=== PATIENT | male | born 1990 | race African-American/Black ===

== ENCOUNTER 2016-09-20 18:13 | Emergency (ER) | payer OTHER ==
[~2016-09-20] VITALS: Ht 172.7 cm; Wt 97.5 kg
[~2016-09-20 18:13] MED LIST: BENZ1TAB5 PO; CHLO100T PO; CHLO100T6 PO; DIVA500T9 PO; FLUO20CA16 PO; HYDR-2666 PO; LINA145C PO; LORA-434 PO; LOSA50TA6 PO; MIRT15TA3 PO; RISP1TAB3 PO; RISP3TAB3 PO; TRAZ50TA15 PO; VALP250C2 PO
[2016-09-20 19:25] VITALS: BP 135/73
--- NOTE | 2016-09-20 19:42 | PHYS DOC ---
Past Medical History Past Medical History: Anxiety, Hypertension, Pneumonia, Other Additional Past Medical Histor: Autism Past Surgical History: Other Additional Past Surgical Histo: sebaceous cyst bilater axilla, L toe amputation Alcohol Use: None Drug Use: None Adult General Chief Complaint Chief Complaint: FEVER HPI HPI Patient is a 26 year old male presents to the emergency department with parents stating that she he has had a fever on and off for the last 2-3 days. He states that he's had a nonproductive cough is been pulling in bilateral ears. She states that he has autism and is nonverbal so it is hard to determine what is going on with him. She denies any nausea vomiting. Review of Systems Review of Systems Constitutional: low grade fever at home Eyes: Denies change in visual acuity, redness, or eye pain [] HENT: Denies nasal congestion or sore throat [] Respiratory: nonproductive cough denies shortness of breath [] Cardiovascular: No additional information not addressed in HPI [] GI: Denies abdominal pain, nausea, vomiting, bloody stools or diarrhea [] : Denies dysuria or hematuria [] Musculoskeletal: Denies back pain or joint pain [] Integument: Denies rash or skin lesions [] Neurologic: Denies headache, focal weakness or sensory changes [] Endocrine: Denies polyuria or polydipsia [] 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 [] HENT: Normocephalic, atraumatic, bilateral external ears normal, oropharynx moist, no oral exudates, nose normal. Bilateral tympanic membranes appear to be normal patient with moist mucous membranes noted however lips do appear to be slightly dry. Eyes: PERRLA, EOMI, conjunctiva normal, no discharge. [] Neck: Normal range of motion, no tenderness, supple, no stridor. [] Cardiovascular:Heart rate regular rhythm, no murmur [] Lungs & Thorax: Bilateral breath sounds clear to auscultation [] Skin: Warm, dry, no erythema, no rash. [] Back: No tenderness Extremities: No tenderness, no cyanosis, no clubbing, ROM intact, no edema. [] Neurologic: Alert and oriented X 3, normal motor function, normal sensory function, no focal deficits noted. [] Psychologic: Affect normal, judgement normal, mood normal. [] Current Patient Data Vital Signs Vital Signs Date Time Temp Pulse Resp B/P (MAP) Pulse Ox O2 Delivery O2 Flow Rate FiO2 09/20/16 19:25 98.3 97 20 97 Room Air 98.3 EKG EKG [] Radiology/Procedures Radiology/Procedures [] Course & Med Decision Making Course & Med Decision Making Pertinent Labs and Imaging studies reviewed. (See chart for details) X-ray positive for infiltrates on the right lower lobe. Patient will be placed on Zithromax with recommendations for Tylenol or ibuprofen for fever chills or generalized body aches and discomfort. Recommended plenty of fluids. Signs and symptoms to return back to emergency department provided. Patient will be discharged home in stable condition. [] Dragon Disclaimer Dragon Disclaimer This electronic medical record was generated, in whole or in part, using a voice recognition dictation system. Departure Departure Impression: Primary Impression: Pneumonia Disposition: HOME, SELF-CARE Condition: STABLE Referrals: LETI MCWILLIAMS MD (PCP) Patient Instructions: Pneumonia, Adult, [id number] Additional Instructions: Activity as tolerated. Medication as prescribed. Tylenol or ibuprofen for pain and discomfort. Encourage plenty of fluids. Follow-up with primary care physician as needed for sign symptoms of become worse. Return back to emergency department as needed. Scripts Azithromycin (ZITHROMAX) 250 Mg Tablet 250 MG PO DAILY for ANTI-BIOTIC, #6 TAB 0 Refills 2 tablets today and then 1 tablet daily until gone Prov: FELIPE LAM APRN 09/20/16 FELIPE LMA APRN September 20, 2016 19:42
[2016-09-20] MEDS ORDERED: AZIT250T PO (19:53)
--- NOTE | 2016-09-21 08:00 | RAD ---
Indication cough and fever. PA and lateral views of the chest were obtained. Comparison is made to an exam 01/25/2016. There is interstitial prominence in the right lung. This is very similar to the previous exam as well as examinations 08/22/2015 and 03/31/2014. The finding, given the lack of substantial change, is probably chronic and treasury representative of scarring. Recurrent pneumonia, given the lack of significant change, is felt less likely. A definite consolidated pneumonia is not seen. The heart and pulmonary vessels are normal. There is no pleural fluid or pneumothorax. IMPRESSION: Probable chronic changes. See above discussion.
== END 2016-09-20 20:08 | disposition home or self-care (01) ==
LOC: ER 18:13
DX: J18.9 Pneumonia, unspecified organism (principal); F41.9 Anxiety disorder, unspecified; I10 Essential (primary) hypertension; Z88.1 Allergy status to other antibiotic agents
CPT/HCPCS: 71020; 99284

== ENCOUNTER 2017-01-15 11:01 | Emergency (ER) | payer OTHER ==
[~2017-01-15 11:01] MED LIST changes: +AZIT250T PO; -HYDR-2666 PO; +HYDR-2758 PO
--- NOTE | 2017-01-15 12:56 | PHYS DOC ---
Past Medical History Past Medical History: Anxiety, Hypertension, Pneumonia, Other Additional Past Medical Histor: Autism Past Surgical History: Other Additional Past Surgical Histo: sebaceous cyst bilater axilla, L toe amputation Alcohol Use: None Drug Use: None Adult General Chief Complaint Chief Complaint: OTHER COMPLAINTS HPI HPI Patient is a 26 year old male who presents to the emergency department with his mother for evaluation of a possible throat problem. Mother states that the patient had an episode shortly prior to arrival where she went to wake him up and stated that he was unresponsive. This lasted for a few minutes per mother. The patient then awoke with coughing. The patient has had intermittent coughing which the mother describes "more is belching" but states that it seems he might have something in his throat. Patient has not eaten or drank anything since this episode. The patient was in his usual state of health and ate breakfast this morning prior to onset of symptoms. Patient's had no fevers. The patient is autistic and is nonverbal. The patient does follow commands. The patient is not vomiting and not having diarrhea. 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 [] HENT: Normocephalic, atraumatic, bilateral external ears normal, oropharynx moist, no oral exudates, nose normal. [] Eyes: PERRLA, EOMI, conjunctiva normal, no discharge. [] Neck: Normal range of motion, no tenderness, supple, no stridor. [] Cardiovascular:Heart rate regular rhythm, no murmur [] Lungs & Thorax: Bilateral breath sounds clear to auscultation [] Abdomen: Bowel sounds normal, soft, no tenderness, no masses, no pulsatile masses. [] Skin: Warm, dry, no erythema, no rash. [] Back: No tenderness, no CVA tenderness. [] Extremities: No tenderness, no cyanosis, no clubbing, ROM intact, no edema. [] Neurologic: Alert, nonverbal, follows commands, normal motor function, normal sensory function, no focal deficits noted. [] Current Patient Data Vital Signs Vital Signs Date Time Temp Pulse Resp B/P (MAP) Pulse Ox O2 Delivery O2 Flow Rate FiO2 01/15/17 13:00 120 134/74 (94) 98 Room Air 01/15/17 12:00 18 01/15/17 11:08 98.3 98.3 Lab Values None performed EKG EKG Not performed[] Radiology/Procedures Radiology/Procedures [facility] [address] [place] [address] IMAGING REPORT Signed PATIENT: ROBERT BARR ACCOUNT: [id number] : 1990 LOCATION: ER AGE: 26 SEX: M EXAM STATUS: REG ER ORD. PHYSICIAN: RENAY GARCIA MD REASON: belching, patient autistic, does not verbalize complaints PROCEDURE: ACUTE ABDOMEN SERIES Examination: Acute abdomen series History: History of belching Comparison: 05/05/2015 Findings: The cardiomediastinal silhouette grossly appears unremarkable. Mild prominent appearing bibasal interstitial lung markings similar to prior exam. Nonspecific bowel gas pattern. Mild amount of stool identified throughout the colon. Impression: 1. Mild prominent appearing bibasal interstitial lung markings similar to prior exam. 2. Nonspecific bowel gas pattern. Minimal amount of stool identified in the colon. DICTATED and SIGNED BY: JENNIFER CORDOVA MD DATE: 01/15/17 1250 CC: RENAY GARCIA MD; LETI FISH MD ~ [] Course & Med Decision Making Course & Med Decision Making Pertinent Labs and Imaging studies reviewed. (See chart for details) The patient appears in no acute distress at this time. The patient was trialed with a lemon point lay ira soda and was able to drink it without difficulty. Patient appears in no respiratory distress and is tolerating by mouth intake without difficulty. I suspect that the patient may have had possible esophageal reflux after napping shortly after a meal. I spoke with the patient's primary physician , Dr. Fish, and informed her of his visit. She has that the patient follow-up routinely next week in her office. Recommended use of antiacids as needed for symptoms. Advised to return emergency department for any worsening symptoms. Mother voiced understanding and in agreement with treatment plan. Dragon Disclaimer Dragon Disclaimer This electronic medical record was generated, in whole or in part, using a voice recognition dictation system. Departure Departure Impression: Primary Impression: Cough Disposition: 01 HOME, SELF-CARE Condition: GOOD Referrals: LETI FISH MD (PCP) Patient Instructions: Cough, Adult Additional Instructions: Your son's exam showed no worrisome findings today in the emergency department. He may have experienced an episode of acid reflux. You may try Tums or other antacids as needed for any recurrence of symptoms. Follow-up with Dr. Fish in the next 5 days for reevaluation. Return to the emergency department for any worsening symptoms. RENAY GARCIA MD Jan 15, 2017 12:56
[2017-01-15 13:00] VITALS: BP 134/74
== END 2017-01-15 13:52 | disposition home or self-care (01) ==
LOC: ER 11:01
DX: R05 Cough (principal); F84.0 Autistic disorder; I10 Essential (primary) hypertension; Z88.2 Allergy status to sulfonamides; Z88.1 Allergy status to other antibiotic agents
CPT/HCPCS: 74022; 99284

== ENCOUNTER 2017-03-28 19:27 | Emergency (ER) | payer OTHER ==
[~2017-03-28] VITALS: Ht 175.3 cm; Wt 93.4 kg
[2017-03-28 19:28] VITALS: BP 184/101
[2017-03-28 20:37] LABS: BASO % 0 % (0-3); EOS % 1 % (0-3); HEMATOCRIT 47.7 % (39.0-53.0); HEMOGLOBIN 15.7 g/dL (13.0-17.5); LYMPH # 2.5 x10^3/uL (1.0-4.8); LYMPH % 45 % (24-48); MEAN CORPUSCULAR HEMOGLOBIN 26 pg (25-35); MEAN CORPUSCULAR HGB CONC 33 g/dL (31-37); MEAN CORPUSCULAR VOLUME 79 fL (79-100); MONO % 12 % (0-9); NEUT % 42 % (31-73); PLATELET COUNT 204 x10^3/uL (140-400); RED BLOOD COUNT 6.01 x10^6/uL (4.30-5.70); RED CELL DISTRIBUTION WIDTH 13.4 % (11.5-14.5); WHITE BLOOD COUNT 5.4 x10^3/uL (4.0-11.0)
--- NOTE | 2017-03-28 20:41 | PHYS DOC ---
Past Medical History Past Medical History: Anxiety, Hypertension, Pneumonia, Other Additional Past Medical Histor: Autism Past Surgical History: Other Additional Past Surgical Histo: sebaceous cyst bilater axilla, L toe amputation Alcohol Use: None Drug Use: None Adult General Chief Complaint Chief Complaint: RECTAL BLEED HPI HPI Patient is a 26 year old -[place] male with history of autism and hypertension who presents with 2 episodes of rectal bleeding over the past 3 weeks. Patient had bright red rectal blood in dependence diaper upon change by his mother who assist caregiver. Patient upon episode today and one episode 3 weeks ago. Does not appear to have pain, fever. He has not had. History of irritable bowel syndrome. Patient is on Linzess No family history of ulcerative colitis of ulcerative, Crohns or colorectal cancer. History is obtained by the patient's mother.. [] Review of Systems Review of Systems ROS limited due to autism[] All other systems were reviewed and found to be within normal limits, except as documented in this note. 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 [] HENT: Normocephalic, atraumatic, bilateral external ears normal, oropharynx moist, no oral exudates, nose normal. [] Eyes: PERRLA, EOMI, conjunctiva normal, no discharge. [] Neck: Normal range of motion[] Cardiovascular:Heart rate regular rhythm, no murmur [] Lungs & Thorax: Since nonlabored, lung sounds clear[] Abdomen: Bowel sounds normal, soft, no tenderness, no masses, no pulsatile masses. Rectal, A sugars, external hemorrhoids or. [] Extremities: No tenderness, no cyanosis, no clubbing, ROM intact, no edema. [] Psychologic: Affect normal, judgement normal, mood normal. [] Current Patient Data Vital Signs Vital Signs Date Time Temp Pulse Resp B/P (MAP) Pulse Ox O2 Delivery O2 Flow Rate FiO2 03/28/17 19:28 98.0 107 22 184/101 (128) 97 Room Air 98.0 EKG EKG [] Radiology/Procedures Radiology/Procedures [] Course & Med Decision Making Course & Med Decision Making Pertinent Labs and Imaging studies reviewed. (See chart for details) [Baseline labs checked. Case reviewed with Dr. Melendez transcription specialist for Dr. Monterroso. Recommends outpatient management. ] Raphael Disclaimer Raphael Disclaimer This electronic medical record was generated, in whole or in part, using a voice recognition dictation system. Departure Departure Impression: Primary Impression: Rectal bleeding Disposition: HOME, SELF-CARE Admitting Physician: Zehra Mcwilliams Condition: GOOD Referrals: ZEHRA MCWILLIAMS MD (PCP) Patient Instructions: Rectal Bleeding, [id number] Additional Instructions: Please give Metamucil twice daily, continue Linzess and follow up with Dr. Mcwilliams. AUBREE DENNIS DO Mar 28, 2017 20:40
== END 2017-03-28 21:13 | disposition home or self-care (01) ==
LOC: ER 19:27
DX: K62.5 Hemorrhage of anus and rectum (principal); I10 Essential (primary) hypertension; K58.9 Irritable bowel syndrome, unspecified; F84.0 Autistic disorder; F41.9 Anxiety disorder, unspecified; Z88.2 Allergy status to sulfonamides; Z88.1 Allergy status to other antibiotic agents; Z88.8 Allergy status to other drugs, medicaments and biological substances
CPT/HCPCS: 36415; 80164; 85025; 99284

== ENCOUNTER 2017-09-07 19:44 | Emergency (ER) | payer OTHER ==
[2017-09-07 20:26] LABS: BILIRUBIN,URINE NEGATIVE (NEG); CLARITY,URINE CLEAR; COLOR,URINE YELLOW; GLUCOSE,URINE NEGATIVE (NEG); NITRITE,URINE NEGATIVE (NEG); PROTEIN,URINE NEGATIVE (NEG-TRACE)
[2017-09-07 20:37] LABS: POC GLUCOSE 97 mg/dL (70-99)
[2017-09-07 20:38] LABS: BACTERIA,URINE 0 /HPF (0-FEW); RBC,URINE 0 /HPF (0-2); WBC,URINE 0 /HPF (0-4)
[2017-09-07] MEDS ORDERED: DIPHTH,PERTUSS(ACELL),TET TOX 0.5 ML DISP.SYRIN. VAX IM ×2 (21:26)
[2017-09-07] MEDS: DIPHTH,PERTUSS(ACELL),TET TOX 0.5 ML DISP.SYRIN. VAX IM ×2 (21:30)
== END 2017-09-07 21:36 | disposition home or self-care (01) ==
LOC: ER 19:44
DX: R35.0 Frequency of micturition (principal); R41.82 Altered mental status, unspecified; F84.0 Autistic disorder; I10 Essential (primary) hypertension; Z88.2 Allergy status to sulfonamides; Z88.1 Allergy status to other antibiotic agents
CPT/HCPCS: 81001; 82962; 90471; 90715; 99283; 99284; 99285

== ENCOUNTER 2017-10-17 14:07 | Emergency (ER) | payer OTHER ==
[2017-10-17] MEDS: IPRATRPIUM/ALBUTEROL 0.5/2.5MG 3 ML NEBU. NEB (14:43)
== END 2017-10-17 16:03 | disposition home or self-care (01) ==
LOC: ER 16:03
DX: R05 Cough (principal); I10 Essential (primary) hypertension; F84.0 Autistic disorder; Z88.1 Allergy status to other antibiotic agents; Z88.2 Allergy status to sulfonamides; Z88.8 Allergy status to other drugs, medicaments and biological substances
CPT/HCPCS: 71045; 94640; 99283; J7620

== ENCOUNTER → 2018-02-21 | Outpatient (CLI) | payer OTHER ==
[2017-10-17 14:12] VITALS: BP 130/75
[~2018-02-21] MED LIST changes: +DIVA-53 PO; -DIVA500T9 PO; -LOSA50TA6 PO; +LOSA50TA7 PO; +TRAZ-85 PO; -TRAZ50TA15 PO
--- NOTE | 2018-02-21 17:46 | RAD ---
CT CHEST WO CONTRAST Indication: Cough for 2-3 months Technique: Noncontrast CT imaging was performed of the mass, multiplanar reconstruction images submitted. One or more of the following individualized dose reduction techniques were utilized for this examination: 1. Automated exposure control 2. Adjustment of the mA and/or kV according to patient size 3. Use of iterative reconstruction technique. Contrast: None Comparison: January 02, 2014 Findings: There are trace dependent pleural effusions greater on the right. There is focus of infiltrate of the right upper lobe with slightly groundglass features best seen axial image 22 series 3. There is mild reticular nodular appearing infiltrate of the posterior right upper lobe and also the right lower lobe. The is also somewhat reticular nodular appearing infiltrate of the left lower lobe. There is no pneumothorax. The heart is upper limits of normal. There is no significant lymphadenopathy of the chest. There is distention of the stomach. IMPRESSION: 1. There are reticulonodular infiltrates bilaterally, also more confluent somewhat groundglass infiltrate of the right upper lobe. Findings are nonspecific and may be seen with various infectious or inflammatory etiologies. There are trace dependent pleural effusions greater on the right. Electronically signed by: Raul Chappell MD (02/21/2018 5:43 PM) [id number]
== END | disposition home or self-care (01) ==
LOC: CT 02-15 09:50
PROVIDERS: ATTEND Internal Medicine Critical Care Medicine
DX: J90 Pleural effusion, not elsewhere classified (principal); K31.89 Other diseases of stomach and duodenum; R91.8 Other nonspecific abnormal finding of lung field
CPT/HCPCS: 71250

== ENCOUNTER 2018-03-01 14:12 | Emergency (ER) | payer OTHER ==
[~2018-03-01] VITALS: Ht 175.3 cm; Wt 91.2 kg
[2018-03-01 14:16] VITALS: BP 162/90
[2018-03-01] MEDS ORDERED: ACETAMINOPHEN 500 MG TABLET PO ONE (14:45)
[2018-03-01 14:49] LABS: BILIRUBIN,URINE NEGATIVE (NEG); CLARITY,URINE CLEAR; COLOR,URINE YELLOW; NITRITE,URINE NEGATIVE (NEG); PH,URINE 7.5; PROTEIN,URINE NEGATIVE (NEG-TRACE); UROBILINOGEN,URINE 0.2 mg/dL (0.2 mg/dL)
[2018-03-01 14:58] LABS: BACTERIA,URINE 0 /HPF (0-FEW); RBC,URINE 0 /HPF (0-2); SQUAMOUS EPITHELIAL CELL,UR OCC /LPF; WBC,URINE 0 /HPF (0-4)
--- NOTE | 2018-03-01 15:45 | PHYS DOC ---
Past Medical History Past Medical History: Hypertension Additional Past Medical Histor: AUTISM Past Surgical History: Other Additional Past Surgical Histo: HEMORRHOID BAND Alcohol Use: None Drug Use: None Adult General Chief Complaint Chief Complaint: OTHER COMPLAINTS HPI HPI Patient is a 27 year old M P/W URINARY FREQUENCY AND PAIN WITH URINATION NO VOMITING NO FEVER HX PROVIDED BY MOTHER Review of Systems Review of Systems UNABLE DUE TO COMM BARRIER Current Medications Current Medications Current Medications Medications (Trade) Dose Ordered Sig/Ayla Start Time Stop Time Status Last Admin Dose Admin Acetaminophen (Tylenol) 1,000 mg 1X ONCE 03/01/18 14:45 03/01/18 14:46 DC 03/01/18 14:47 1,000 MG 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 [] HENT: Normocephalic, atraumatic, bilateral external ears normal, oropharynx moist, no oral exudates, nose normal. [] Eyes: PERRLA, EOMI, conjunctiva normal, no discharge. [] Neck: Normal range of motion, no tenderness, supple, no stridor. [] Pulmonary: Normal respiratory effort no increased work of breathing no obvious chest wall trauma Abdomen: Bowel sounds normal, soft, no tenderness, no masses, no pulsatile masses. [] Back: No tenderness, no CVA tenderness. [] Extremities: No tenderness, no cyanosis, no clubbing, ROM intact, no edema. [] Neurologic: , normal motor function, normal sensory function, no focal deficits noted. [] Psychologic:STEROTYPED MOVEMENTS NOTED MILD AGITATION Current Patient Data Vital Signs Vital Signs Date Time Temp Pulse Resp B/P (MAP) Pulse Ox O2 Delivery O2 Flow Rate FiO2 03/01/18 14:16 97.9 92 20 162/90 (114) 100 Room Air 97.9 Lab Values Laboratory Tests Test 03/01/18 14:20 03/01/18 14:40 Glucose (Fingerstick) 81 mg/dL (70-99) Urine Collection Type Void Urine Color Yellow Urine Clarity Clear Urine pH 7.5 Urine Specific [place] <=1.005 Urine Protein Negative mg/dL (NEG-TRACE) Urine Glucose (UA) Negative mg/dL (NEG) Urine Ketones (Stick) Negative mg/dL (NEG) Urine Blood Negative (NEG) Urine Nitrite Negative (NEG) Urine Bilirubin Negative (NEG) Urine Urobilinogen Dipstick 0.2 mg/dL (0.2 mg/dL) Urine Leukocyte Esterase Negative (NEG) Urine RBC 0 /HPF (0-2) Urine WBC 0 /HPF (0-4) Urine Squamous Epithelial Cells Occ /LPF Urine Bacteria 0 /HPF (0-FEW) EKG EKG [] Radiology/Procedures Radiology/Procedures [] Course & Med Decision Making Course & Med Decision Making Pertinent Labs and Imaging studies reviewed. (See chart for details) []URINE NEGATIVE QUERY BEHAVIORAL ISSUE I SAW HIM IN AUGUST FOR SAME. Dragon Disclaimer Dragon Disclaimer This electronic medical record was generated, in whole or in part, using a voice recognition dictation system. Departure Departure Impression: Primary Impression: Urinary frequency Disposition: HOME, SELF-CARE Condition: STABLE Referrals: LETI MCWILLIAMS MD (PCP) Patient Instructions: Dysuria-Brief ULI MCADAMS MD Mar 01, 2018 15:45
== END 2018-03-01 15:14 | disposition home or self-care (01) ==
LOC: ER 14:12
DX: R35.0 Frequency of micturition (principal); R30.0 Dysuria; I10 Essential (primary) hypertension; F84.0 Autistic disorder; Z88.1 Allergy status to other antibiotic agents; Z88.2 Allergy status to sulfonamides; Z88.8 Allergy status to other drugs, medicaments and biological substances
CPT/HCPCS: 81001; 82962; 99283; 99284

== ENCOUNTER → 2018-03-07 | Day surgery (SDC) | payer OTHER ==
[~2018-03-07] MED LIST changes: +EPINEPHrine 1 MG/ML VIAL INJ PRN; +EPINEPHrine 1 MG/ML VIAL ONE; +HYDROmorphone 2 MG/ML VIAL IV PRN; +LIDOCAINE 1% Multi-Dose 50 ML VIAL. ONE; +LIDOCAINE 1% PF 2 ML VIAL. ID PRN; +LIDOCAINE 2% VISCOUS 100 ML BOTTLE. ONE; +LIDOCAINE 4% TOPICAL 50 ML SOLUTION. ONE; +MORPHINE SULFATE 2 MG/ML VIAL. IV PRN; +PROCHLORPERAZINE 10 MG/2 ML VIAL. IV PRN; +PROPOFOL 40 ML IV ONE; +fentaNYL PF VIAL 100 MCG/2 ML VIAL IV PRN
[2018-03-07 12:23] LABS: BASO % 1 % (0-3); EOS % 1 % (0-3); HEMOGLOBIN 15.8 g/dL (13.0-17.5); LYMPH # 1.5 x10^3/uL (1.0-4.8); LYMPH % 45 % (24-48); MEAN CORPUSCULAR HEMOGLOBIN 27 pg (25-35); MEAN CORPUSCULAR HGB CONC 34 g/dL (31-37); MEAN CORPUSCULAR VOLUME 79 fL (79-100); MONO # 0.4 x10^3/uL (0.0-1.1); MONO % 12 % (0-9); NEUT # 1.4 x10^3uL (1.8-7.7); NEUT % 41 % (31-73); PLATELET COUNT 193 x10^3/uL (140-400); RED BLOOD COUNT 5.95 x10^6/uL (4.30-5.70); RED CELL DISTRIBUTION WIDTH 13.1 % (11.5-14.5); WHITE BLOOD COUNT 3.3 x10^3/uL (4.0-11.0)
[2018-03-07] MEDS: LIDOCAINE 2% VISCOUS 100 ML BOTTLE. MM PRN (12:28)
[2018-03-07] MEDS: LIDOCAINE 1% Multi-Dose 50 ML VIAL. INJ PRN (12:28)
[2018-03-07] MEDS: ALBUTEROL SULFATE 2.5 MG/3 ML NEBU. NEB PRN (12:29)
[2018-03-07] MEDS: LIDOCAINE 4% TOPICAL 50 ML SOLUTION. MM PRN (12:29)
[2018-03-07] MEDS: IV RINGERS,LACTATED 1000ML 1,000 ML IV SCH (12:45)
--- NOTE | 2018-03-07 13:17 | OP ---
DATE OF SURGERY: 03/07/2018 PROCEDURE: Bronchoscopy. INDICATION: Abnormal CT chest with persistent cough and chronic interstitial infiltrates. DESCRIPTION OF PROCEDURE: Informed consent was obtained from the patient's mother who agreed to proceed with the procedure. The patient was sedated with propofol by anesthesia prior to the procedure. Bronch was introduced through the right nostril. The upper airway was passed. Vocal cords moves equally with respiration. The trachea was entered, no tracheal lesions seen. Right lung was examined. All subsegments of right upper, right middle and right lower lobe were examined. There was hyperemia of the mucosa throughout. Bronchoalveolar lavage performed from the right middle lobe and also from the right lower lobe. Bronch was then introduced into the left lung. All subsegments of left upper lobe, lingula and left lower lobe were examined, again seen was mucosal hyperemia throughout. Bronchoalveolar lavage performed from the lingula. No endobronchial lesion seen in either the right or the left lung and no purulent secretions seen. The patient tolerated the procedure well. IMPRESSION: 1. Mild diffuse hyperemia seen in both the lungs. 2. No endobronchial lesions seen. 3. No purulent secretions seen. 4. Bronchoalveolar lavage performed from the right middle lobe, right lower lobe and lingula and sent for appropriate studies. 5. The patient to follow up with me in 4-6 weeks. BACILIO HENSLEY MD DR: JOSE/clark JOB#: [id number] / [id number]
[2018-03-07 13:36] VITALS: BP 116/67
== END | disposition home or self-care (01) ==
LOC: SURG 11:42
PROVIDERS: ATTEND Internal Medicine Critical Care Medicine
DX: J81.1 Chronic pulmonary edema (principal); I10 Essential (primary) hypertension; F41.9 Anxiety disorder, unspecified; Z98.890 Other specified postprocedural states; Z79.899 Other long term (current) drug therapy; Z88.8 Allergy status to other drugs, medicaments and biological substances; Z88.1 Allergy status to other antibiotic agents; Z88.2 Allergy status to sulfonamides
CPT/HCPCS: 31624; 36415; 85025; 87102; 87116; 87205; 94640; J2704; J7613; 31622; 87070; J0171

== ENCOUNTER → 2018-06-06 | Outpatient (CLI) | payer OTHER ==
[2018-03-07 13:36] VITALS: BP 116/67
[~2018-06-06] MED LIST changes: -EPINEPHrine 1 MG/ML VIAL INJ PRN; -EPINEPHrine 1 MG/ML VIAL ONE; -HYDR-2758 PO; +HYDR-2761 PO; -HYDROmorphone 2 MG/ML VIAL IV PRN; -LIDOCAINE 1% Multi-Dose 50 ML VIAL. ONE; -LIDOCAINE 1% PF 2 ML VIAL. ID PRN; -LIDOCAINE 2% VISCOUS 100 ML BOTTLE. ONE; -LIDOCAINE 4% TOPICAL 50 ML SOLUTION. ONE; -LINA145C PO; +LINZESS145 MCG PO; +LOSA-73 PO; -LOSA50TA7 PO; -MORPHINE SULFATE 2 MG/ML VIAL. IV PRN; -PROCHLORPERAZINE 10 MG/2 ML VIAL. IV PRN; -PROPOFOL 40 ML IV ONE; -fentaNYL PF VIAL 100 MCG/2 ML VIAL IV PRN
[2018-06-06 14:39] LABS: BASO % 1 % (0-3); EOS % 1 % (0-3); HEMATOCRIT 48.3 % (39.0-53.0); HEMOGLOBIN 15.7 g/dL (13.0-17.5); LYMPH # 1.7 x10^3/uL (1.0-4.8); LYMPH % 39 % (24-48); MEAN CORPUSCULAR HEMOGLOBIN 26 pg (25-35); MEAN CORPUSCULAR HGB CONC 33 g/dL (31-37); MEAN CORPUSCULAR VOLUME 79 fL (79-100); MONO # 0.4 x10^3/uL (0.0-1.1); MONO % 10 % (0-9); NEUT # 2.2 x10^3uL (1.8-7.7); NEUT % 50 % (31-73); PLATELET COUNT 212 x10^3/uL (140-400); RED CELL DISTRIBUTION WIDTH 14.1 % (11.5-14.5); WHITE BLOOD COUNT 4.4 x10^3/uL (4.0-11.0)
[2018-06-06 14:53] LABS: ALBUMIN 3.9 g/dL (3.4-5.0); ALBUMIN/GLOBULIN RATIO 1.1 (1.0-1.7); ALK PHOS 43 U/L (46-116); ALT (SGPT) 21 U/L (16-63); ANION GAP 7 (6-14); AST (SGOT) 21 U/L (15-37); BLOOD UREA NITROGEN 14 mg/dL (8-26); BUN/CREATININE RATIO 13 (6-20); CALCIUM 9.2 mg/dL (8.5-10.1); CARBON DIOXIDE 31 mmol/L (21-32); CHLORIDE 101 mmol/L (98-107); CREATININE 1.1 mg/dL (0.7-1.3); GFR 95.8; GLUCOSE 93 mg/dL (70-99); POTASSIUM 3.9 mmol/L (3.5-5.1); SODIUM 139 mmol/L (136-145); TOTAL BILIRUBIN 0.4 mg/dL (0.2-1.0); TOTAL PROTEIN 7.3 g/dL (6.4-8.2)
[2018-06-06 14:55] LABS: VAL ACID 66 mcg/mL (50-100)
[2018-06-06 15:25] LABS: BARBITURATES NEG (NEG); BENZODIAZEPINES NEG (NEG); CANNABINOIDS NEG (NEG); COCAINE NEG (NEG); METHADONE NEG (NEG); OPIATES NEG (NEG); PHENCYCLIDINE NEG (NEG)
[2018-06-06 15:26] LABS: AMPHETAMINE/METHAMPHETAMINE NEG (NEG)
== END | disposition home or self-care (01) ==
LOC: LAB 14:19
PROVIDERS: ATTEND Psychiatry & Neurology Neurology
DX: R51 Headache (principal)
CPT/HCPCS: 36415; 80053; 80164; 80307; 82607; 84443; 85025; 85651

== ENCOUNTER → 2018-06-13 | Outpatient (CLI) | payer OTHER ==
[2018-03-07 13:36] VITALS: BP 116/67
--- NOTE | 2018-06-13 10:55 | RAD ---
PQRS Compliance statement: One or more of the following individualized dose reduction techniques were utilized for this examination: 1. Automated exposure control. 2. Adjustment of the mA and/or kV according to patient size. 3. Use of iterative reconstruction technique. Indication:DYER INVOLUNTARY MOVEMENTS H/O MENTAL RETARDATION TECHNIQUE: CT head without IV contrast COMPARISON:Without FINDINGS: No pathologic extra-axial or intra-axial fluid collection. The ventricles and basal cisterns are within normal limits. No acute intracranial bleed. No focal loss of saez-white differentiation. Orbits within normal limits. No suspicious calvarial lesion. Visualized paranasal sinuses and mastoid air cells are clear. IMPRESSION: No acute intracranial process. Electronically signed by: Kirill Black DO (06/13/2018 10:52 AM) [id number]
== END | disposition home or self-care (01) ==
LOC: CT 10:22
PROVIDERS: ATTEND Psychiatry & Neurology Neurology
DX: G25.9 Extrapyramidal and movement disorder, unspecified (principal); R51 Headache
CPT/HCPCS: 70450

== ENCOUNTER → 2018-06-14 | Outpatient (CLI) | payer OTHER ==
[2018-03-07 13:36] VITALS: BP 116/67
[~2018-06-14] MED LIST changes: +TRAZ-118 PO; -TRAZ-85 PO
--- NOTE | 2018-06-17 13:01 | EEG ---
DATE OF SERVICE: 06/14/2018 EEG NUMBER: [id number] OBJECTIVE: This is a 28-year-old male patient with history of abnormal movements. EEG was requested to evaluate cerebral activity and help rule out seizure. METHODS: Twenty electrodes were applied according to the international 10-20 electrode placement system. EKG monitoring, hyperventilation, intermittent photic stimulation, monopolar and bipolar montages are routinely utilized. The record was obtained on a digital system with video monitoring. FINDINGS: 1. Background: The patient was recorded in the awake, drowsy, and sleep states. The overall background amplitude is 5-15 microvolts. A posterior dominant rhythm of 8 Hz is observed most time. 2. Abnormalities: No specific epileptiform discharge or electrographic seizure is seen. No focal or diffuse slowing. Significant artifact noted and patient was unable to follow the commands. 3. Activation: Hyperventilation was not performed because patient was unable to follow the commands. Intermittent photic stimulation was performed with photic driving. No specific epileptiform discharge or electrographic seizure induced by intermittent photic stimulation. IMPRESSION: This EEG is a borderline study for the awake, drowsy, and sleep states. Significant artifact noted. No focal, lateralizing, specific epileptiform discharge or electrographic seizure is seen. ANA ROSA COLON MD DR: INDU/clark JOB#: [id number] / [id number] EFREN
== END | disposition home or self-care (01) ==
LOC: RT 12:39
PROVIDERS: ATTEND Psychiatry & Neurology Neurology
DX: G47.69 Other sleep related movement disorders (principal)
CPT/HCPCS: 95816

== ENCOUNTER → 2018-08-01 | Outpatient (CLI) | payer OTHER ==
[2018-03-07 13:36] VITALS: BP 116/67
--- NOTE | 2018-08-01 16:59 | KCIC ---
Examination: RENAL COMPLETE BILATERAL History: Hematuria Comparison/Correlation: None Findings: Right kidney measures 10.8 cm x 5.3 cm x 5.2 cm. Mildly right renal pelvis is present. Left kidney measures 10.9 cm x 5.4 cm x 5.6 cm but is not well visualized. No calculi identified. Renal contours are unremarkable. Renal echotexture is unremarkable. Abdominal aorta and inferior vena cava are obscured. Coto catheter is present within the urinary bladder. Bilateral ureteral jets identified. Impression: Mildly dilated right renal pelvis. Otherwise unremarkable exam. If mass lesion is a persistent concern, consider CT IVP urogram exam if able. Electronically signed by: Harlan Osborne MD (08/01/2018 4:56 PM) [facility]
== END | disposition home or self-care (01) ==
LOC: KCIC US 15:31
PROVIDERS: ATTEND Family Medicine
DX: R31.9 Hematuria, unspecified (principal); N28.89 Other specified disorders of kidney and ureter
CPT/HCPCS: 76770

== ENCOUNTER → 2018-08-08 | Outpatient (CLI) | payer OTHER ==
[2018-03-07 13:36] VITALS: BP 116/67
[~2018-08-08] MED LIST changes: +CONTRAST GIVEN. MC PRN; +IOHEXOL 300 MG/ML 100ML VIAL. IV ONE
--- NOTE | 2018-08-08 10:28 | RAD ---
CT of the abdomen pelvis with and without contrast, urography protocol 08/08/2018 9:30 AM Indication: Possible right hydronephrosis on prior ultrasound. Dark urine. Comparison Study: None. Technique: Multidetector CT imaging of the abdomen and pelvis was performed both before and after the administration of contrast. Delayed imaging was performed according to the urography protocol. Findings: Motion artifact limits exam. Mild atelectasis present in the lung bases. Solid viscera of the abdomen including the liver, spleen, pancreas, and adrenal glands are grossly unremarkable. The bilateral kidneys are grossly normal in appearance. There is no evidence of nephrolithiasis or obstructive uropathy. The ureters are normal in course and caliber. Portions of the ureters are not opacified on delayed imaging appear to be unremarkable. No abnormal filling defects within the renal collecting system is identified. The bladder is grossly unremarkable. There is no significant free fluid or free air in the abdomen or pelvis. There is no evidence of bowel obstruction or significant inflammatory change. The appendix is well visualized and grossly normal. There is no acute osseous abnormality identified. Impression: 1. No evidence of acute intra-abdominal abnormality 2. No nephrolithiasis,, obstructive uropathy, or other focal abnormality. CT DOSING PQRS STATEMENT: One or more of the following individualized dose reduction techniques were utilized for this examination: 1. Automated exposure control 2. Adjustment of the mA and/or kV according to patient size 3. Use of iterative reconstruction technique Electronically signed by: Abraham Scherer MD (08/08/2018 10:25 AM) [facility]
== END | disposition home or self-care (01) ==
LOC: CT 08:55
PROVIDERS: ATTEND Family Medicine
DX: N28.89 Other specified disorders of kidney and ureter (principal); R31.9 Hematuria, unspecified; J98.11 Atelectasis
CPT/HCPCS: 74178; Q9967

== ENCOUNTER → 2018-10-15 | Outpatient (CLI) | payer OTHER ==
[2018-03-07 13:36] VITALS: BP 116/67
[~2018-10-15] MED LIST changes: -CONTRAST GIVEN. MC PRN; -IOHEXOL 300 MG/ML 100ML VIAL. IV ONE
--- NOTE | 2018-10-15 16:22 | RAD ---
CHEST PA LATERAL History: Cough for one week Comparison: 09/20/2016 two-view chest x-ray exam, 10/17/2017 AP view of the chest. Findings: The cardiomediastinal silhouette is normal. Pulmonary vasculature is normal. Interstitial thickening at the right mid and lower thoracic level is similar to the prior exam. No focal consolidation. No pleural effusion or pneumothorax is seen. There is no acute bone abnormality. IMPRESSION: Minimal left lingular interstitial thickening of the right mid to lower lung field is similar upon correlation with previous examinations. No focal consolidation or suspicious interval change.. Electronically signed by: Harlan Osborne MD (10/15/2018 4:19 PM) [id number]
== END | disposition home or self-care (01) ==
LOC: RAD 08:57
PROVIDERS: ATTEND Family Medicine
DX: R05 Cough (principal); R91.8 Other nonspecific abnormal finding of lung field
CPT/HCPCS: 71046

== ENCOUNTER 2019-01-06 08:34 | Emergency (ER) | payer OTHER ==
[~2019-01-06] VITALS: Ht 175.3 cm; Wt 96.2 kg
[2019-01-06 08:40] VITALS: BP 139/79
--- NOTE | 2019-01-06 09:31 | PHYS DOC ---
Past Medical History Past Medical History: GERD, High Cholesterol, Hypertension Additional Past Medical Histor: AUTISM Past Surgical History: Other Additional Past Surgical Histo: HEMORRHOID BAND; toe amputation; sebacious cyst Alcohol Use: None Drug Use: None Adult General Chief Complaint Chief Complaint: COUGH [facility] HPI Patient is a 28 year old non-verbal male with history of autism who brought in by his mother because of cough and shortness of breath. Patient mother states he had cough and problem with his breathing around 4 AM that sounded like something stuck in his throat. Patient cough improves but his skin has a few coughs and was able to tolerate oral intake without nausea and vomiting. Patient mother states he had history of pneumonia previously and wanted to make sure he does not have problem. Patient had O2 sat of 97% on arrival to ER without respiratory distress. Review of Systems Review of Systems Review Of systems was obtained from patient mother. Constitutional: Denies fever or chills [] Eyes: Denies change in visual acuity, redness, or eye pain [] HENT: Denies nasal congestion or sore throat [] Respiratory: Reports cough and shortness of breath Cardiovascular: No additional information not addressed in HPI [] GI: Denies abdominal pain, nausea, vomiting, bloody stools or diarrhea [] : Denies dysuria or hematuria [] Musculoskeletal: Denies back pain or joint pain [] Integument: Denies rash or skin lesions [] Neurologic: Denies headache, focal weakness or sensory changes [] Endocrine: Denies polyuria or polydipsia [] All other systems were reviewed and found to be within normal limits, except as documented in this note. Allergies Allergies Allergies Coded Allergies Type Severity Reaction Last Updated Verified sulfamethoxazole Allergy Intermediate 03/07/18 Yes trimethoprim Allergy Intermediate 03/07/18 Yes vancomycin Adverse Reaction Intermediate Itching. 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 [] HENT: Normocephalic, atraumatic. Eyes: PERRLA, EOMI, conjunctiva normal, no discharge. [] Neck: Normal range of motion, no tenderness, supple, no stridor. [] Cardiovascular:Heart rate regular rhythm, no murmur [] Lungs & Thorax: Bilateral breath sounds clear to auscultation [] Abdomen: Bowel sounds normal, soft, no tenderness, no masses, no pulsatile masses. [] Skin: Warm, dry, no erythema, no rash. [] Back: No tenderness, no CVA tenderness. [] Extremities: No tenderness, no cyanosis, no clubbing, ROM intact, no edema. [] Neurologic: Alert , no focal deficits noted. [] Psychologic: Nonverbal, unable to evaluate Current Patient Data Vital Signs Vital Signs Date Time Temp Pulse Resp B/P (MAP) Pulse Ox O2 Delivery O2 Flow Rate FiO2 01/06/19 08:40 99.0 87 16 139/79 (99) 95 Room Air 99.0 EKG EKG [] Radiology/Procedures Radiology/Procedures [address] [id number] IMAGING REPORT Signed PATIENT: ROBERT BARR: [id number] : 1990 LOCATION: ER AGE: 28 SEX: M EXAM STATUS: REG ER ORD. PHYSICIAN: MYRA MARTINEZ MD REASON: shortness of breath/COUGH PROCEDURE: CHEST PA & LATERAL Chest, PA and Lateral: Technique: PA and lateral views of the chest were obtained. History: Shortness of breath, cough. Comparison: 10/15/2018. Findings: The heart and pulmonary vasculature appear within normal limits. The lungs are clear. The pleural margins are clear. Impression: No acute chest process is seen. Electronically signed by: Thomas Leos MD (01/06/2019 9:31 AM) [place] [id number] DICTATED and SIGNED BY: THOMAS LEOS MD DATE: 01/06/19 0931 [place] [address] [id number] [place] [address] IMAGING REPORT Signed PATIENT: ROBERT BARR: [id number] : 1990 LOCATION: ER AGE: 28 SEX: M EXAM STATUS: REG ER ORD. PHYSICIAN: MYRA MARTINEZ MD REASON: shortness of breath PROCEDURE: NECK SOFT TISSUE Study: NECK SOFT TISSUE Indication: Shortness of breath. Comparison: None. Findings: Normal configuration of the epiglottis. Normal thickness of the prevertebral soft tissues. The radiographic appearance of the airway on the AP view is within normal limits. No radiopaque foreign body seen within the airway. The partially evaluated osseous structures are unremarkable. Impression: No abnormal thickening of the epiglottis, narrowing of the visualized airway or thickening of the prevertebral soft tissues. No radiopaque foreign body identified. Electronically signed by: JOY CHAUDHRY MD (01/06/2019 9:41 AM) [facility] DICTATED and SIGNED BY: JOY CHAUDHRY MD DATE: 01/06/19 0941 Course & Med Decision Making Course & Med Decision Making Pertinent Imaging studies reviewed. (See chart for details) Evaluation of patient in ER showed 28-year-old male patient with autism and one episode of cough and shortness of breath this morning that resolved at arrival to ER. Patient had unremarkable physical exam except for nonverbal condition. Vital signs was stable. X-ray of chest and soft tissue of neck was unremarkable. I've spoken with the patient and/or caregivers. I've explained the patient's condition, diagnosis and treatment plan based on information available to me at this time. I've answered the patient's and/or caregivers questions and addressed any concerns. The patient and/or caregivers have a good understanding the sylvia guzmán's diagnosis, condition and treatment plan as can be expected at this point. Vital signs have been stabilized. The patient's condition is stable for discharge from the emergency department. The patient will pursue further outpatient evaluation with her primary care provider or other designated consulting physician as outlined in the discharge instructions. Patient and/or caregivers are agreeable to this plan of care and follow-up instructions have been explained in detail. The patient and/or caregivers have received these instructions in written format and expressed understanding of these discharge instructions. The patient and her caregivers are aware that if any significant change in condition or worsening of symptoms should prompt him to immediately return to this of the closest emergency department. If an emergent department is not readily available I would encourage him to call 911. Raphael Disclaimer Dragon Disclaimer This electronic medical record was generated, in whole or in part, using a voice recognition dictation system. Departure Departure Impression: Primary Impression: Feared condition not demonstrated Additional Impressions: Autism Nonverbal Disposition: 01 HOME, SELF-CARE (at 0956) Condition: IMPROVED Referrals: LETI MCWILLIAMS MD (PCP) Patient Instructions: Cough, Adult Additional Instructions: Drink plenty of liquids Follow-up with your primary care physician in 3-5 days Return to ER if not getting better Problem Qualifiers MYRA MARTINEZ MD Jan 06, 2019 09:31
--- NOTE | 2019-01-06 09:44 | RAD ---
Study: NECK SOFT TISSUE Indication: Shortness of breath. Comparison: None. Findings: Normal configuration of the epiglottis. Normal thickness of the prevertebral soft tissues. The radiographic appearance of the airway on the AP view is within normal limits. No radiopaque foreign body seen within the airway. The partially evaluated osseous structures are unremarkable. Impression: No abnormal thickening of the epiglottis, narrowing of the visualized airway or thickening of the prevertebral soft tissues. No radiopaque foreign body identified. Electronically signed by: JOY CHAUDHRY MD (01/06/2019 9:41 AM) [facility]
== END 2019-01-06 10:15 | disposition home or self-care (01) ==
LOC: ER 08:34
DX: F84.0 Autistic disorder (principal); R06.02 Shortness of breath; R05 Cough; K21.9 Gastro-esophageal reflux disease without esophagitis; E78.00 Pure hypercholesterolemia, unspecified; I10 Essential (primary) hypertension; Z88.2 Allergy status to sulfonamides; Z88.1 Allergy status to other antibiotic agents
CPT/HCPCS: 70360; 71046; 99284

== ENCOUNTER 2019-11-13 10:38 | Emergency (ER) | payer OTHER ==
[2019-04-03 14:06] VITALS: BP 151/94
[~2019-11-13 10:38] MED LIST changes: +AMOX1TAB61 PO; +METR500T PO
== END 2019-11-13 10:54 | disposition left against medical advice (07) ==
LOC: ER 10:38
DX: R50.9 Fever, unspecified (principal); Z53.21 Procedure and treatment not carried out due to patient leaving prior to being seen by health care provider

== ENCOUNTER 2019-11-16 09:10 | Emergency (ER) | payer OTHER ==
[~2019-11-16] VITALS: Ht 180.3 cm; Wt 90.9 kg
[2019-11-16 10:19] VITALS: BP 136/84
== END 2019-11-16 10:43 | disposition left against medical advice (07) ==
LOC: ER 09:10
DX: R33.9 Retention of urine, unspecified (principal); Z53.21 Procedure and treatment not carried out due to patient leaving prior to being seen by health care provider

== ENCOUNTER 2019-11-25 17:03 | Emergency (ER) | payer OTHER ==
[~2019-11-25] VITALS: Ht 172.7 cm; Wt 97.0 kg
--- NOTE | 2019-11-25 17:27 | PHYS DOC ---
Past Medical History Past Medical History: GERD, High Cholesterol, Hypertension Additional Past Medical Histor: AUTISM (NIKIA MCKOY DO) Past Surgical History: Other Additional Past Surgical Histo: HEMORRHOID BAND; toe amputation; sebacious cyst (NIKIA MCKOY DO) Smoking Status: Never Smoker Alcohol Use: None Drug Use: None (NIKIA MCKOY DO) General Adult EDM: Chief Complaint: RAPID HEART RATE HPI: HPI: The history was obtained from the patient's mother. Patient is a 29-year-old male with PMH autism, hypertension, GERD who presents with a chief complaint of elevated heart rate. Mom states the patient was diagnosed with coronavirus on November 09. She states that at the time of diagnosis he did have a cough. She sta helena over the next several days that he developed fatigue. She states that his cough did improve significantly. She states she has been checking his oxygen saturation and heart rate at home regularly due to his recent COVID diagnosis. She states that she routinely checked his heart rate just prior to arrival noted to be 150. States this lasted only approximately a few seconds. She states that his cough has somewhat returned. However, she does note that he has somewhat of a cough at baseline due to his autism tics. She states that he has not had a temperature in 5 days. She states that his fatigue has improved significantly. She denies any somnolence. She denies any vomiting. She states he has been eating and drinking extremely well at home. She states that he also takes Ativan as needed for hyperactivity. She states that she tried calling a pharmacy to get guidance on administering this medication but the ambulance showed up first. She denies any signs of cyanosis or apnea. She states her greatest concern is making sure that he does not have pneumonia. No other complaints. (NIKIA MCKOY DO) Review of Systems: Review of Systems: Constitutional: Positive for fatigue Eyes: Denies change in visual acuity. [] HENT: Denies nasal congestion or sore throat. [] Respiratory: Positive for cough Cardiovascular: Denies chest pain or edema. [] GI: Denies abdominal pain, nausea, vomiting, bloody stools or diarrhea. [] : Denies dysuria. [] Musculoskeletal: Denies back pain or joint pain. [] Integument: Denies rash. [] Neurologic: Denies headache, focal weakness or sensory changes. [] Endocrine: Denies polyuria or polydipsia. [] Lymphatic: Denies swollen glands. [] Psychiatric: Denies depression or anxiety. [] (NIKIA MCKOY DO) Heart Score: Risk Factors: Risk Factors: DM, Current or recent (<one month) smoker, HTN, HLP, family history of CAD, obesity. Risk Scores: Score 0 - 3: 2.5% MACE over next 6 weeks - Discharge Home Score 4 - 6: 20.3% MACE over next 6 weeks - Admit for Clinical Observation Score 7 - 10: 72.7% MACE over next 6 weeks - Early Invasive Strategies (NIKIA MCKOY DO) Allergies: Allergies: Allergies Coded Allergies Type Severity Reaction Last Updated Verified sulfamethoxazole Allergy Intermediate 03/07/18 Yes trimethoprim Allergy Intermediate 03/07/18 Yes vancomycin Adverse Reaction Intermediate Itching. Taya's syndrome 03/07/18 No (NIKIA MCKOY DO) Physical Exam: PE: Constitutional: Well developed, well nourished, no acute distress, non-toxic appearance. [] HENT: Normocephalic, atraumatic, bilateral external ears normal, oropharynx moist, no oral exudates, nose normal. [] Eyes: PERRLA, EOMI, conjunctiva normal, no discharge. [] Neck: Normal range of motion, no tenderness, supple, no stridor. [] Cardiovascular: Tachycardic. Regular. No murmurs rubs or gallops noted. Lungs & Thorax: Bilateral breath sounds clear to auscultation [] Abdomen: Bowel sounds normal, soft, no tenderness, no masses, no pulsatile masses. [] Skin: Warm, dry, no erythema, no rash. [] Back: No tenderness, no CVA tenderness. [] Extremities: No tenderness, no cyanosis, no clubbing, ROM intact, no edema. [] Neurologic: Alert and oriented X 3, normal motor function, normal sensory function, no focal deficits noted. [] Psychologic: Affect normal, judgement normal, mood normal. [] (NIKIA MCKOY DO) Current Patient Data: Labs: Laboratory Tests Test 11/25/19 17:38 White Blood Count 4.7 x10^3/uL Red Blood Count 6.03 x10^6/uL Hemoglobin 15.8 g/dL Hematocrit 47.6 % Mean Corpuscular Volume 79 fL Mean Corpuscular Hemoglobin 26 pg Mean Corpuscular Hemoglobin Concent 33 g/dL Red Cell Distribution Width 13.9 % Platelet Count 371 x10^3/uL Neutrophils (%) (Auto) 45 % Lymphocytes (%) (Auto) 38 % Monocytes (%) (Auto) 15 % Eosinophils (%) (Auto) 1 % Basophils (%) (Auto) 1 % Neutrophils # (Auto) 2.2 x10^3/uL Lymphocytes # (Auto) 1.8 x10^3/uL Monocytes # (Auto) 0.7 x10^3/uL Eosinophils # (Auto) 0.0 x10^3/uL Basophils # (Auto) 0.1 x10^3/uL Sodium Level 140 mmol/L Potassium Level 4.0 mmol/L Chloride Level 103 mmol/L Carbon Dioxide Level 34 mmol/L Anion Gap 3 Blood Urea Nitrogen 11 mg/dL Creatinine 1.1 mg/dL Estimated GFR (Cockcroft-Gault) 95.1 Glucose Level 78 mg/dL Calcium Level 9.4 mg/dL Current Medications Medications (Trade) Dose Ordered Sig/Ayla Route PRN Reason Start Time Stop Time Status Last Admin Dose Admin Lorazepam (Ativan) 1 mg 1X ONCE PO 11/25/19 18:00 11/25/19 18:01 DC 11/25/19 17:37 Sodium Chloride 1,000 ml @ 1,000 mls/hr 1X ONCE IV 11/25/19 17:30 11/25/19 18:29 DC 11/25/19 17:37 Vital Signs: Vital Signs Date Time Temp Pulse Resp B/P (MAP) Pulse Ox O2 Delivery O2 Flow Rate FiO2 11/25/19 17:21 99.7 106 20 124/65 (84) 99 Room Air 99.7 Vital Signs Date Time Temp Pulse Resp B/P (MAP) Pulse Ox O2 Delivery O2 Flow Rate FiO2 11/25/19 17:21 99.7 106 20 124/65 (84) 99 Room Air 99.7 (MEGHNA MCCORMICK MD) EKG: EKG: EKG consistent with sinus tachycardia. Ventricular rate of 112 bpm. [place] normal. Intervals normal. No acute ischemic changes appreciated. No previous EKG for comparison. [] (NIKIA MCKOY DO) Radiology/Procedures: Radiology/Procedures: [] (NIKIA MCKOY DO) Radiology/Procedures: [facility] [address] [place] [address] IMAGING REPORT Signed PATIENT: ROBERT BARR LACCOUNT: [id number] : 1990 LOCATION: ER AGE: 29 SEX: M EXAM STATUS: REG ER ORD. PHYSICIAN: NIKIA MCKOY DO REASON: cough PROCEDURE: CHEST AP ONLY Exam: Chest one view INDICATION: Cough TECHNIQUE: Total view of the chest Comparisons: 01/06/2019 FINDINGS: The cardiomediastinal silhouette and pulmonary vessels are within normal limits. The lung and pleural spaces are clear. IMPRESSION: No acute cardiopulmonary process. Electronically signed by: Malika Lee MD (11/25/2019 5:49 PM) [id number] DICTATED and SIGNED BY: MALIKA LEE MD DATE: 11/25/19 1749 (MEGHNA MCCORMICK MD) Course & Med Decision Making: Course & Med Decision Making Pertinent Labs and Imaging studies reviewed. (See chart for details) Patient is a 29-year-old male who presents via EMS for mother's concern of elev ated heart rate. Initial vital signs notable for heart rate approximate 108. He shows no signs of toxicity or respiratory distress on my examination. Mom in fact states that the heart rate of 150 at home only lasted for a few seconds. EKG today reveals sinus tachycardia with a heart rate of 112. Chest x-ray shows no focal consolidation. At this time labs are pending. Fluid resuscitation will be initiated. He was given his home oral Ativan medication. I do anticipate discharge home with primary care follow-up. Signout has been given to . We did discuss labs, imaging, and results currently back as well as expected course. See update notes for final disposition COVID-19 CRITERIA: The patient was evaluated during the global COVID-19 pandemic, and that diagnosis was suspected/considered upon their initial presentation. Their evaluation, treatment and testing was consistent with current guidelines for patients who present with complaints or symptoms that may be related to COVID-19. (NIKIA MCKOY DO) Course & Med Decision Making Received signout from [facility] doctor about this 29-year-old gentleman. Patient was tachycardic to a heart rate of 150 prior to arrival. Patient's heart rates in the low 100s right now. Patient had COVID about 2-1/2 weeks ago and symptoms seem to be improving. On my exam his abdomen is soft and nontender. His heart rate is in the low 100s and his laboratory assessments reviewed showing. We will continue to hydrate and then patient will go home after hydration is complete. (MEGHNA MCCORMICK MD) Dragon Disclaimer: Dragon Disclaimer: This electronic medical record was generated, in whole or in part, using a voice recognition dictation system. (NIKIA MCKOY DO) Departure Departure Impression: Primary Impression: Tachycardia Additional Impression: COVID-19 Disposition: 01 HOME, SELF-CARE Condition: STABLE Referrals: LETI MCWILLIAMS MD (PCP) 2-3 days Patient Instructions: Nonspecific Tachycardia Additional Instructions: You have been tested for or diagnosed with COVID-19. It is an infection caused by a new type of coronavirus. COVID-19 will cause cold-like or mild flu symptoms in most. It can cause more severe symptoms like problems breathing in some. There is no treatment for COVID-19. The body will clear the infection over time. Self-care will help to ease discomfort. Steps to Take: Self-Care Rest as needed. Healthy habits may help you feel better. Steps include: Choose healthy foods including fruits and vegetables. Drink water throughout the day. Get plenty of sleep each night. If you smoke, try to quit. It may ease breathing. Avoid alcohol. Keep Others Healthy The virus can spread to others. Droplets are released every time you sneeze or cough. The droplets can get into the mouth, nose, or eyes of people near you and lead to infection. To lower the chances of spreading COVID-19 to others: Stay at home until your doctor has said it is safe to leave. If you tested positive this will mean staying isolated until both of the following are true: At least 7 days have passed since the start of illness. You are free of fever for at least 72 hours without the use of medicine. During this time: - Avoid public areas, events, or transportation. Do not return to work or school until your doctor has said it is safe to do so. - Call ahead if you need to go to a medical center. Let them know you may have COVID-19. It will help them guide you where to go. They may also ask you to wear a facemask when you come to the office. - If you call for emergency medical services, let them know you may have COVID- 19. While at home: - Try to avoid close contact with others. Stay about 6 feet away. - If possible, spend most of your time in a separate room from others. - Use a face mask if you will be in close contact with others such as sharing a room or vehicle. - Have someone wipe down common surfaces in the home. Use household chief controller station every day on areas like doorknobs, counters, or sinks. - Cough or sneeze into a tissue. Throw the tissue away right after use. If a tissue is not available, cough or sneeze into your elbow. - Wash your hands often. Wash them after sneezing or coughing. Use soap and water and wash for at least 20 seconds. Alcohol based hand electrode cleaner can be used if soap and water is not available. - Do not prepare food for others. Avoid sharing personal items like forks, spoons, or toothbrushes. - Avoid close contact with pets while you are sick. There is no evidence of the virus passing to pets. This is a safety step until more is known about this virus. Isolation can be frustrating. Social interaction can help. Keep in touch with friends and family through phone and tech options. You can still interact with others in your home, just keep a safe distance of about 6 feet. Follow-up: Your doctors office will check in with you to see if there are any changes in your health. You may be asked to keep track of symptoms to share with them. They will also let you know when you are clear to be in public again. Problems to Look Out For: Contact your doctor if your recovery is not going as you expect. Get emergency care if you have problems such as: - Trouble breathing - Nonstop chest pain or pressure - Changes in awareness, confusion, or problems waking - Lips or face have bluish color - Worsening of symptoms If you think you have an emergency, call for emergency medical services right away. As taken from [facility] EMERGENCY DEPARTMENT GENERAL DISCHARGE INSTRUCTIONS THANK YOU for coming to [facility] Emergency Department (ED) today and trusting us with your care. We trust that you had a positive experience in our Emergency Department. If you wish to speak to the department Management you can contact the supervisor assembly department at . YOUR FOLLOW UP INSTRUCTIONS ARE FOLLOWS: Do you have a private doctor? If you do not have a private doctor, please ask for a resource list of physicians or clinics that may be able to assist you with follow up care. The Emergency Physician has interpreted your x-rays. The X-ray specialist will also review them. If there is a change in the findings you will be notified in 48 hours when at all possible. A lab test or lab culture may have been done, your results will be reviewed and you will be notified if you need a change in treatment. ADDITIONAL INSTRUCTIONS AND INFORMATION Your care today has been supervised by a physician who is specially trained in emergency care. Many problems require more than one evaluation for a complete diagnosis and treatment. We recommend that you schedule your follow up appointment as recommended to ensure complete treatment of your illness or injury. If you are unable to obtain follow up care and continue to have a problem, or if your condition worsens we recommend that you return to the ED. We are not able to safely determine your condition over the phone nor are we able to give sound medical advice over the phone. For these safety reasons, if you call for medical advice we will ask you to come to the ED for further evaluation If you have any questions regarding these discharge instructions please call the ED at . SAFETY INFORMATION In the interest of safety, wellness, and injury prevention; we encourage you to wear your seatbelt, if you smoke; quit smoking, and we encourage your family to use protective helmet for bicycling and other sporting events that present an increased risk for head injury. IF YOUR SYMPTOMS WORSEN OR NEW SYMPTOMS DEVELOP, OR YOU HAVE CONCERNS ABOUT YOUR CONDITION; OR IF YOUR CONDITION WORSENS WHILE YOU ARE WAITING FOR YOUR FOLLOW UP APPOINTMENT; EITHER CONTACT YOUR PRIMARY CARE DOCTOR, THE PHYSICIAN WHOSE NAME AND NUMBER YOU WERE GIVEN, OR RETURN TO THE ED IMMEDIATELY. Scripts Ondansetron Hcl (ZOFRAN) 4 Mg Tablet 1 TAB PO PRN Q6-8HRS PRN for NAUSEA, #12 TAB Prov: MEGHNA MCCORMICK MD 11/25/19 Justicifation of Admission Dx: Justifications for Admission: Justification of Admission Dx: N/A (NIKIA MCKOY DO) Justification of Admission Dx: N/A (MEGHNA MCCORMICK MD) NIKIA MCKOY DO Nov 25, 2019 17:27 MEGHNA MCCORMICK MD Nov 25, 2019 18:11
[2019-11-25] MEDS ORDERED: IV NORMAL SALINE 1000ML BAG 1,000 ML IV ONE (17:30)
--- NOTE | 2019-11-25 17:52 | RAD ---
Exam: Chest one view INDICATION: Cough TECHNIQUE: Total view of the chest Comparisons: 01/06/2019 FINDINGS: The cardiomediastinal silhouette and pulmonary vessels are within normal limits. The lung and pleural spaces are clear. IMPRESSION: No acute cardiopulmonary process. Electronically signed by: Malika Sanches MD (11/25/2019 5:49 PM) [id number]
[2019-11-25] MEDS ORDERED: LORazepam 1 MG TABLET PO ONE (18:00)
[2019-11-25 18:05] LABS: BASO # 0.1 x10^3/uL (0.0-0.2); BASO % 1 % (0-3); EOS % 1 % (0-3); HEMATOCRIT 47.6 % (39.0-53.0); HEMOGLOBIN 15.8 g/dL (13.0-17.5); LYMPH # 1.8 x10^3/uL (1.0-4.8); LYMPH % 38 % (24-48); MEAN CORPUSCULAR HEMOGLOBIN 26 pg (25-35); MEAN CORPUSCULAR HGB CONC 33 g/dL (31-37); MEAN CORPUSCULAR VOLUME 79 fL (79-100); MONO # 0.7 x10^3/uL (0.0-1.1); MONO % 15 % (0-9); NEUT # 2.2 x10^3/uL (1.8-7.7); NEUT % 45 % (31-73); PLATELET COUNT 371 x10^3/uL (140-400); RED BLOOD COUNT 6.03 x10^6/uL (4.30-5.70); RED CELL DISTRIBUTION WIDTH 13.9 % (11.5-14.5); WHITE BLOOD COUNT 4.7 x10^3/uL (4.0-11.0)
[2019-11-25 18:11] LABS: CALCIUM 9.4 mg/dL (8.5-10.1); CREATININE 1.1 mg/dL (0.7-1.3); GFR 95.1
[2019-11-25] MEDS ORDERED: ONDA4TAB7 PO (18:37)
[2019-11-25 18:47] VITALS: BP 140/88
--- NOTE | 2019-11-26 16:01 | EKG ---
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
== END 2019-11-25 18:52 | disposition home or self-care (01) ==
LOC: ER 17:03
DX: U07.1 COVID-19 (principal); I47.1 Supraventricular tachycardia; R05 Cough; R53.83 Other fatigue; K21.9 Gastro-esophageal reflux disease without esophagitis; E78.00 Pure hypercholesterolemia, unspecified; I10 Essential (primary) hypertension; Z98.890 Other specified postprocedural states; Z88.2 Allergy status to sulfonamides; Z88.1 Allergy status to other antibiotic agents; Z88.8 Allergy status to other drugs, medicaments and biological substances
CPT/HCPCS: 36415; 71045; 80048; 85025; 93005; 96360; 99285; J7030

== ENCOUNTER 2019-11-29 11:36 | Emergency (ER) | payer OTHER ==
[~2019-11-29] VITALS: Ht 172.7 cm; Wt 97.7 kg
[~2019-11-29 11:36] MED LIST changes: +ONDA4TAB7 PO
--- NOTE | 2019-11-29 12:45 | PHYS DOC ---
Past Medical History Past Medical History: GERD, High Cholesterol, Hypertension Additional Past Medical Histor: AUTISM Past Surgical History: Other Additional Past Surgical Histo: HEMORRHOID BAND; toe amputation; sebacious cyst Smoking Status: Never Smoker Alcohol Use: None Drug Use: None General Adult EDM: Chief Complaint: RAPID HEART RATE HPI: HPI: Patient is a 29 year old male with history of developmental delay, hypertension, high cholesterol, who presents to the ED today with the mother. Patient is nonverbal, mother is doing the speaking. Mother report patient was diagnosed with COVID19 on November 06, 2019 and was on isolation for 14 days. Mother reports patient has finished his isolation and has been noted to have palpitations/rapid heart rates since his diagnosis with COVID. Mother reports patient has been seen at multiple facilities for the last 2 weeks for similar symptoms. Mother denies patient having any cough or congestion. Mother reports patient has Ativan twice a day prescribed for hyperactivity. She states she gave patient Ativan at 5 AM. Review of Systems: Review of Systems: Constitutional: Denies fever or chills. [] Eyes: Denies change in visual acuity. [] HENT: Denies nasal congestion or sore throat. [] Respiratory: Denies cough or shortness of breath. [] Cardiovascular: Reports rapid heart rate. Denies chest pain or edema. [] GI: Denies abdominal pain, nausea, vomiting, bloody stools or diarrhea. [] : Denies dysuria. [] Musculoskeletal: Denies back pain or joint pain. [] Integument: Denies rash. [] Neurologic: Denies headache, focal weakness or sensory changes. [] Psychiatric: Denies depression or anxiety. [] Heart Score: HEART Score for Chest Pain: HEART Score for Chest Pain Response (Comments) Value History Slighlty/Non-Suspicious 0 ECG Normal 0 Age < 45 0 Risk Factors 1 or 2 Risk Factors 1 Troponin < Normal Limit 0 Total 1 Risk Factors: Risk Factors: DM, Current or recent (<one month) smoker, HTN, HLP, family history of CAD, obesity. Risk Scores: Score 0 - 3: 2.5% MACE over next 6 weeks - Discharge Home Score 4 - 6: 20.3% MACE over next 6 weeks - Admit for Clinical Observation Score 7 - 10: 72.7% MACE over next 6 weeks - Early Invasive Strategies Allergies: Allergies: Allergies Coded Allergies Type Severity Reaction Last Updated Verified sulfamethoxazole Allergy Intermediate 03/07/18 Yes trimethoprim Allergy Intermediate 03/07/18 Yes vancomycin Adverse Reaction Intermediate Itching. Taya's syndrome 03/07/18 No Physical Exam: PE: Constitutional: Well developed, well nourished, no acute distress, non-toxic appearance. [] HENT: Normocephalic, atraumatic, bilateral external ears normal, oropharynx moist, no oral exudates, nose normal. [] Eyes: PERRLA, EOMI, conjunctiva normal, no discharge. [] Neck: Normal range of motion, no tenderness, supple, no stridor. [] Cardiovascular:Heart rate regular rhythm, no murmur [] Lungs & Thorax: Bilateral breath sounds clear to auscultation [] Abdomen: Bowel sounds normal, soft, no tenderness, no masses, no pulsatile masses. [] Skin: Warm, dry, no erythema, no rash. [] Back: No tenderness, no CVA tenderness. [] Extremities: No tenderness, no cyanosis, no clubbing, ROM intact, no edema. [] Neurologic: Alert and oriented X 1-developmental delay, normal motor function, normal sensory function, no focal deficits noted. [] Psychologic: Affect normal, judgement normal, mood normal. [] Current Patient Data: Vital Signs: Vital Signs Date Time Temp Pulse Resp B/P (MAP) Pulse Ox O2 Delivery O2 Flow Rate FiO2 11/29/19 11:45 97.8 117 20 144/87 (106) 98 Room Air 97.8 EKG: EK Interpreted by Dr. Gregorio sinus tachycardia HR 101 no STEMI Radiology/Procedures: Radiology/Procedures: []PROCEDURE: PORTABLE CHEST 1V Single view chest dated 11/29/2019. Comparison made 11/25/2019. CLINICAL INDICATION: Palpitations. Fundus: Single upright portable exam performed. Heart and mediastinal contours are stable. Patchy perihilar airspace disease, similar to slightly improved. No apparent pleural effusion or pneumothorax. IMPRESSION: Patchy perihilar opacities, similar slightly improved from prior study. Electronically signed by: Homer Mckinnon MD (11/29/2019 1:04 PM) [id number] DICTATED and SIGNED BY: HOMER MCKINNON MD DATE: 11/29/19 1307 Course & Med Decision Making: Course & Med Decision Making Pertinent Labs and Imaging studies reviewed. (See chart for details) This is a 29-year-old male patient with developmental delay presenting to the ED today with mother, mother reports patient has had a rapid heart rate since he was diagnosed with a COVID19 on November 06, 2019. Mother reports patient has been seen at multiple facilities for his symptoms with negative work-up. Mother was requesting we keep patient in the hospital for observation. Informed mother hospitals are not the best place for the patient considering what is going on. HR 101 on arrival to the ED. Temp is normal. Chest xray Patchy perihilar opacities, similar slightly improved from prior study. Labs are negative for any acute findings, reassured mother. Patient has Ativan ordered for hyperactivity. Recommended he gets Ativan as soon as he gets home. Patient has an appointment with a clinic physician on Sunday. Encourage mother to make sure patient follows up. Patient was discharged in stable condition. Dragon Disclaimer: Dragon Disclaimer: This electronic medical record was generated, in whole or in part, using a voice recognition dictation system. Departure Departure Impression: Primary Impression: Tachycardia Disposition: HOME, SELF-CARE Condition: STABLE Referrals: LETI MCWILLIAMS MD (PCP) follow up next week Patient Instructions: Nonspecific Tachycardia Additional Instructions: Please follow-up with patient's clinic physician as primary care doctor in the course of next week. Bring him back to the ED at any point symptoms worsen. Justicifation of Admission Dx: Justifications for Admission: Justification of Admission Dx: N/A REMEDIOS HILTON APRN Nov 29, 2019 12:45
--- NOTE | 2019-11-29 13:07 | RAD ---
Single view chest dated 11/29/2019. Comparison made 11/25/2019. CLINICAL INDICATION: Palpitations. Fundus: Single upright portable exam performed. Heart and mediastinal contours are stable. Patchy perihilar airspace disease, similar to slightly improved. No apparent pleural effusion or pneumothorax. IMPRESSION: Patchy perihilar opacities, similar slightly improved from prior study. Electronically signed by: Homer Mckinnon MD (11/29/2019 1:04 PM) [id number]
[2019-11-29 13:08] LABS: CALCIUM 9.7 mg/dL (8.5-10.1); CREATININE 1.1 mg/dL (0.7-1.3); GFR 95.1; POTASSIUM 4.1 mmol/L (3.5-5.1)
[2019-11-29 13:14] LABS: ALBUMIN/GLOBULIN RATIO 1.2 (1.0-1.7); MAGNESIUM 2.4 mg/dL (1.8-2.4); TOTAL BILIRUBIN 0.3 mg/dL (0.2-1.0); TOTAL PROTEIN 7.3 g/dL (6.4-8.2)
[2019-11-29 13:34] LABS: BASO % 1 % (0-3); EOS % 0 % (0-3); HEMATOCRIT 45.8 % (39.0-53.0); HEMOGLOBIN 15.2 g/dL (13.0-17.5); LYMPH # 1.6 x10^3/uL (1.0-4.8); LYMPH % 30 % (24-48); MEAN CORPUSCULAR HEMOGLOBIN 26 pg (25-35); MEAN CORPUSCULAR HGB CONC 33 g/dL (31-37); MEAN CORPUSCULAR VOLUME 79 fL (79-100); MONO # 0.5 x10^3/uL (0.0-1.1); MONO % 10 % (0-9); NEUT # 3.2 x10^3/uL (1.8-7.7); NEUT % 60 % (31-73); PLATELET COUNT 312 x10^3/uL (140-400); RED CELL DISTRIBUTION WIDTH 14.1 % (11.5-14.5); WHITE BLOOD COUNT 5.3 x10^3/uL (4.0-11.0)
[2019-11-29 13:45] VITALS: BP 131/99
--- NOTE | 2019-12-01 08:01 | EKG ---
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
== END 2019-11-29 14:15 | disposition home or self-care (01) ==
LOC: ER 11:36
DX: R00.0 Tachycardia, unspecified (principal); R00.2 Palpitations; K21.9 Gastro-esophageal reflux disease without esophagitis; E78.00 Pure hypercholesterolemia, unspecified; I10 Essential (primary) hypertension; Z98.890 Other specified postprocedural states; Z88.2 Allergy status to sulfonamides; Z88.8 Allergy status to other drugs, medicaments and biological substances
CPT/HCPCS: 36415; 71045; 80053; 82553; 83735; 83880; 84443; 84484; 85025; 93005; 99285

== ENCOUNTER 2021-01-24 06:38 | Emergency (ER) | payer OTHER ==
[~2021-01-24 06:38] MED LIST changes: +MIRT-7 PO; -MIRT15TA3 PO; -RISP1TAB3 PO; +RISP1TAB88 PO; -RISP3TAB3 PO; +RISP3TAB56 PO
--- NOTE | 2021-01-24 07:04 | PHYS DOC ---
General Adult EDM: Chief Complaint: OTHER COMPLAINTS HPI: HPI: Patient is a unidentified male approximately [age] years old who presents with [facility] fire department after being found outside. Was found at [address] [facility] in [facility] near the corner of [address] [place] [address] and [place]. An elderly gentleman reportedly found him outside of his home. No one in the area was able to identify him so he was brought to the emergency department. Vital signs were stable in transport, aside from some very mild tachycardia in the low 100s. Temperature was normal. Only evidence of injury is a right knee abrasion Patient is nonverbal and is not able to give his name or any other information. Review of Systems: Review of Systems: Unable to perform ROS due to nonverbal status. Heart Score: C/O Chest Pain: N/A Risk Factors: Risk Factors: DM, Current or recent (<one month) smoker, HTN, HLP, family history of CAD, obesity. Risk Scores: Score 0 - 3: 2.5% MACE over next 6 weeks - Discharge Home Score 4 - 6: 20.3% MACE over next 6 weeks - Admit for Clinical Observation Score 7 - 10: 72.7% MACE over next 6 weeks - Early Invasive Strategies Physical Exam: PE: Constitutional: Well appearing, well developed. Good hygiene. hiding under covers. HENT no evidence of trauma to the head or neck. Good dentition. Eyes: EOMs intact, pupils equal, round, reactive Neck: Normal range of motion, no tenderness, supple, no stridor. [] Cardiovascular:Heart rate regular rhythm, no murmur [] Lungs & Thorax: Bilateral breath sounds clear to auscultation [] Abdomen: Soft, nontender to palpation. Skin: Abrasion to right knee. Warm, dry, no erythema, no rash. [] Extremities: No tenderness, no cyanosis, no clubbing, ROM intact, no edema. [] Neurologic: Alert, opens eyes to voice, follows very simple commands occasionally, makes incomprehensible sounds. Moving all extremities purposefully. no focal deficits noted. [] EKG: EKG: [] Radiology/Procedures: Radiology/Procedures: [] Course & Med Decision Making: Course & Med Decision Making Pertinent Labs and Imaging studies reviewed. (See chart for details) Patient is an unidentified male brought in by the fire department after being found wandering the neighborhood. On arrival has a normal temperature, normal vital signs. Heart rate in the 80s. He appears to be nonverbal, only evidence of injury is abrasion on the right knee. Well appearing, will hold on any medical work up. Called [facility] Police Department, and I have been told that a mother has just called about her missing autistic child. A uniform patrol police officer will reportedly be coming to the emergency department. 07 Received call from police dispatch, [place]. Stated that the mother will be coming to department with a uniform patrol police officer. She will bring ID for the patient. Name is Stef Rivers, 30 yo M. [id number] Photo ID provided, confirmed ID. Mother and PD at bedside. Will be released into mothers care. Raphael Disclaimer: Raphael Disclaimer: This electronic medical record was generated, in whole or in part, using a voice recognition dictation system. Departure Departure Impression: Primary Impression: Social problem Disposition: 01 HOME / SELF CARE / HOMELESS Condition: STABLE PEGGY LINDSAY MD Jan 24, 2021 07:04
[2021-01-24 07:38] VITALS: BP 123/81
== END 2021-01-24 07:38 | disposition home or self-care (01) ==
LOC: EDBD 06:38 → MERGE 06:38 → ER 06:38
DX: S80.211A Abrasion, right knee, initial encounter (principal); R00.0 Tachycardia, unspecified; X58.XXXA Exposure to other specified factors, initial encounter; Y93.89 Activity, other specified; Y92.89 Other specified places as the place of occurrence of the external cause; Y99.9 Unspecified external cause status
CPT/HCPCS: 99283

== ENCOUNTER 2021-02-21 10:50 | Emergency (ER) | payer OTHER ==
[~2021-02-21] VITALS: Ht 177.8 cm; Wt 79.5 kg
[2021-02-21 11:08] VITALS: BP 178/104
--- NOTE | 2021-02-21 11:57 | PHYS DOC ---
Past Medical History Past Medical History: GERD, High Cholesterol, Hypertension Additional Past Medical Histor: AUTISM Past Surgical History: Other Additional Past Surgical Histo: HEMORRHOID BAND; toe amputation; sebacious cyst Smoking Status: Never Smoker Alcohol Use: None Drug Use: None General Adult EDM: Chief Complaint: PENIS PROBLEM HPI: HPI: Patient is a [age]-year-old male with severe autism brought in by mother for chief complaint of a laceration to his penis that has been there for the past 2 weeks, patient's mother thinks it might need to be sewed up as she has been performing daily wound care without any noticeable healing. Denies other physical complaints or physical concerns for her son. Patient's mother is not certain of how his penis became lacerated, just noticed during routine cleaning of her son as he is a total care patient Review of Systems: Review of Systems: 14 body systems of review of systems have been reviewed. See HPI for pertinent positives and negative responses, otherwise all other systems are negative, nonpertinent or noncontributory. Constitutional: Negative except as outlined in HPI above. Skin: Negative except as outlined in HPI above. Eyes: Negative except as outlined in HPI above. HENT: Negative except as outlined in HPI above. Respiratory: Negative except as outlined in HPI above. Cardiovascular: Negative except as outlined in HPI above. GI: Negative except as outlined in HPI above. : Negative except as outlined in HPI above. Musculoskeletal: Negative except as outlined in HPI above. Integument: Negative except as outlined in HPI above. Neurologic: Negative except as outlined in HPI above. Endocrine: Negative except as outlined in HPI above. Lymphatic: Negative except as outlined in HPI above. Psychiatric: Negative except as outlined in HPI above. Heart Score: C/O Chest Pain: No Risk Factors: Risk Factors: DM, Current or recent (<one month) smoker, HTN, HLP, family history of CAD, obesity. Risk Scores: Score 0 - 3: 2.5% MACE over next 6 weeks - Discharge Home Score 4 - 6: 20.3% MACE over next 6 weeks - Admit for Clinical Observation Score 7 - 10: 72.7% MACE over next 6 weeks - Early Invasive Strategies Allergies: Allergies: Allergies Coded Allergies Type Severity Reaction Last Updated Verified sulfamethoxazole Allergy Intermediate 03/07/18 Yes trimethoprim Allergy Intermediate 03/07/18 Yes vancomycin Adverse Reaction Intermediate Itching. Taya's syndrome 03/07/18 No Physical Exam: PE: Constitutional: Well developed, well nourished, no acute distress, non-toxic appearance. 30-year-old male in no apparent distress, making incomprehensible noises. Follows commands HENT: Normocephalic, atraumatic. Eyes: Conjunctiva normal, no discharge. Neck: Normal range of motion, no stridor. Cardiovascular: No cyanosis appreciated, distal cap refill less than 2 seconds. Lungs & Thorax: Patient is in no respiratory distress, no audible adventitious lung sounds appreciated. Abdomen: Nontender, no abnormalities noted. Skin: Warm, dry, no erythema, no rash. Back: No tenderness, no deformities. Extremities: No tenderness, no cyanosis, no clubbing, ROM intact, no edema. Neurologic: Alert, unable to assess orientation related to patient's history of severe autism. : Patient is wearing adult briefs, exam performed with female nurse at bedside and mother at bedside, patient has no rashes or lesions to his genitals however does have a small linear 0.4 cm ulcer to posterior side of glans penis without bleeding, no infectious process or drainage appreciated. Current Patient Data: Vital Signs: Vital Signs Date Time Temp Pulse Resp B/P (MAP) Pulse Ox O2 Delivery O2 Flow Rate FiO2 02/21/21 11:08 98.1 104 20 178/104 (128) 98 Room Air 98.1 EKG: EKG: [] Radiology/Procedures: Radiology/Procedures: [] Course & Med Decision Making: Course & Med Decision Making Pertinent Labs and Imaging studies reviewed. (See chart for details) 30-year-old male, vital signs reviewed, presents emergency department concerning laceration to penis. Physical examination reveals a very small superficial 0.4 cm linear skin ulcer to the underneath side of the glans penis, there is no bleeding or infectious process appreciated, there is no drainage, this is not appear to be a viral lesion or pancreas lesion that would suggest STI syphilis infection, it is evident patient's mother has been performing good wound care as there is no infectious process appreciated. Discussed with patient's mother following up with the [facility] wound care specialty center this week. His mother is amenable to ED planning. Called and discussed patient case with [facility] wound care center, recommended patient call today or tomorrow for appointment for evaluation. Discussed with patient's mother recommendations from wound care center, patient's mother will be given contact information to DC instructions. Discussed with the patient all findings and diagnostic testing as well as the need to follow-up with their primary care provider for further evaluation and treatment or return to the ED if any new or worsening symptoms. Strict return precautions were also discussed at length, the patient voiced understanding and agreement with the discharge planning. The patient was nontoxic in appearance, in no apparent distress, and hemodynamically stable at the time of disposition. Dragon Disclaimer: DragFiestah Disclaimer: This electronic medical record was generated, in whole or in part, using a voice recognition dictation system. Departure Departure Impression: Primary Impression: Skin ulcer Qualified Codes: L98.499 - Non-pressure chronic ulcer of skin of other sites with unspecified severity Disposition: HOME / SELF CARE / HOMELESS Condition: GOOD Referrals: LETI MCWILLIAMS MD (PCP) Additional Instructions: You were seen today in the emergency department for a wound on the bottom side of your penis. As we discussed, you may use Tylenol and Motrin for pain relief, continue to perform your wound care as this skin ulcer does not look infected and you have been performing excellent wound care at home. As we discussed, please follow-up with the wound care clinic located here at [facility] building on the [facility], their address is [address] [place] [address]. Again they are located in the [facility]. Their telephone number is area code [phone]. I have spoken to the wound care clinic today to review your case, please call today or as soon as possible for a timely appointment. Please return to the emergency department for worsening symptoms or other concerns. Thank you for visiting our Emergency Department. It was a pleasure taking care of you today in the emergency department and we appreciate you trusting us with your care. If any additional problems come up don't hesitate to return to visit us. Please follow up with your primary care provider so they can plan additional care if needed and know about the problem that you had. If symptoms worsen come back to the Emergency Department. Any concerning symptoms that start such as chest pain, shortness of air, weakness or numbness on one side of the body, running high fevers or any other concerning symptoms return to the ER. Scripts Ibuprofen (IBUPROFEN) 600 Mg Tablet 600 MG PO PRN Q6HRS PRN for INFLAMMATION, #30 TAB 0 Refills Prov: KELVIN CHRISTOPHER APRN 02/21/21 KELVIN CHRISTOPHER APRN Feb 21, 2021 11:57
[2021-02-21] MEDS ORDERED: IBUP-1007 PO (12:04)
== END 2021-02-21 12:00 | disposition home or self-care (01) ==
LOC: ER 10:50
DX: L98.499 Non-pressure chronic ulcer of skin of other sites with unspecified severity (principal); K21.9 Gastro-esophageal reflux disease without esophagitis; E78.00 Pure hypercholesterolemia, unspecified; I10 Essential (primary) hypertension; Z88.1 Allergy status to other antibiotic agents; Z88.2 Allergy status to sulfonamides
CPT/HCPCS: 99282

== ENCOUNTER 2021-02-26 08:53 | Emergency (ER) | payer OTHER ==
[~2021-02-26] VITALS: Ht 172.7 cm; Wt 90.7 kg
[~2021-02-26 08:53] MED LIST changes: +IBUP-1007 PO
[2021-02-26 09:41] LABS: BASO % 1 % (0-3); EOS % 1 % (0-3); HEMOGLOBIN 14.8 g/dL (13.0-17.5); LYMPH # 1.7 x10^3/uL (1.0-4.8); LYMPH % 46 % (24-48); MEAN CORPUSCULAR HEMOGLOBIN 26 pg (25-35); MEAN CORPUSCULAR HGB CONC 33 g/dL (31-37); MEAN CORPUSCULAR VOLUME 80 fL (79-100); MONO # 0.5 x10^3/uL (0.0-1.1); MONO % 13 % (0-9); NEUT # 1.5 x10^3/uL (1.8-7.7); NEUT % 40 % (31-73); PLATELET COUNT 211 x10^3/uL (140-400); RED BLOOD COUNT 5.64 x10^6/uL (4.30-5.70); RED CELL DISTRIBUTION WIDTH 13.6 % (11.5-14.5); WHITE BLOOD COUNT 3.8 x10^3/uL (4.0-11.0)
[2021-02-26 10:13] LABS: CREATININE 1.1 mg/dL (0.7-1.3); GFR 94.5; POTASSIUM 3.3 mmol/L (3.5-5.1)
[2021-02-26 10:19] LABS: ALBUMIN 3.9 g/dL (3.4-5.0); ALBUMIN/GLOBULIN RATIO 1.2 (1.0-1.7); TOTAL BILIRUBIN 0.5 mg/dL (0.2-1.0); TOTAL PROTEIN 7.1 g/dL (6.4-8.2)
--- NOTE | 2021-02-26 10:35 | PHYS DOC ---
Past Medical History Past Medical History: GERD, High Cholesterol, Hypertension Additional Past Medical Histor: AUTISM (KELVIN CHRISTOPHER APRN) Past Surgical History: Other Additional Past Surgical Histo: HEMORRHOID BAND; toe amputation; sebacious cyst (KELVIN CHRISTOPHER APRN) Smoking Status: Never Smoker Alcohol Use: None Drug Use: None (KELVIN CHRISTOPHER APRN) General Adult EDM: Chief Complaint: OTHER COMPLAINTS HPI: HPI: Patient is a 30-year-old male with a history of autism, is nonverbal, only makes incomprehensible sounds, requires total care, presents to the emergency department with mother at bedside who is his primary caregiver reports patient has not slept in 2 weeks, is acting more hyper than normal, was told by his physician at [facility] there is nothing they can do and to come to the emergency department for evaluation. Mother states patient recently stopped medication risperidone yesterday and started Abilify 10 mg this morning under the direction of Dr. Choe at [facility]. Mother denies patient having recent fevers or chills, is uncertain whether the patient is in pain, denies other physical concerns or physical complaints for her son. HPI limited related to patient's autism and nonverbal state, patient's mother is primary historian. (KELVIN CHRISTOPHER APRN) Review of Systems: Review of Systems: Limited review of systems related to patient's history of autism and is nonverbal only makes incomprehensible sounds, HPI given by patient's mother who is his primary caregiver. (KELVIN CHRISTOPHER APRN) Heart Score: C/O Chest Pain: No Risk Factors: Risk Factors: DM, Current or recent (<one month) smoker, HTN, HLP, family history of CAD, obesity. Risk Scores: Score 0 - 3: 2.5% MACE over next 6 weeks - Discharge Home Score 4 - 6: 20.3% MACE over next 6 weeks - Admit for Clinical Observation Score 7 - 10: 72.7% MACE over next 6 weeks - Early Invasive Strategies (KELVIN CHRISTOPHER APRN) Allergies: Allergies: Allergies Coded Allergies Type Severity Reaction Last Updated Verified sulfamethoxazole Allergy Intermediate 03/07/18 Yes trimethoprim Allergy Intermediate 03/07/18 Yes vancomycin Adverse Reaction Intermediate Itching. Taya's syndrome 03/07/18 No (KELVIN CHRISTOPHER APRN) Physical Exam: PE: Constitutional: Well developed, well nourished, no acute distress, non-toxic appearance. Patient is making incomprehensible sounds, is at baseline per mother's report, otherwise in no apparent distress. HENT: Normocephalic, atraumatic. No lymphadenopathy of the head or neck, oropharynx moist, pink, no deep tissue infectious process appreciated. Bilateral TMs within normal limits. Eyes: Conjunctiva normal, no discharge. PERRLA, pupils 4 mm equal. Neck: Normal range of motion, no stridor. Cardiovascular: No cyanosis appreciated, distal cap refill less than 2 seconds. Lungs & Thorax: Patient is in no respiratory distress, no audible adventitious lung sounds appreciated. Abdomen: Nontender, no abnormalities noted. Skin: Warm, dry, no erythema, no rash. Back: No tenderness, no deformities. Extremities: No tenderness, no cyanosis, no clubbing, ROM intact, no edema. Neurologic: Alert, patient is nonverbal unable to assess orientation, patient is total care related to autism with severe mental deficits. Patient does follow commands. Psychologic: History of autism. Patient is nonverbal. Makes incomprehensible sounds. (KELVIN CHRISTOPHER APRN) Current Patient Data: Labs: Laboratory Tests Test 02/26/21 09:25 02/26/21 10:10 White Blood Count 3.8 x10^3/uL Red Blood Count 5.64 x10^6/uL Hemoglobin 14.8 g/dL Hematocrit 45.0 % Mean Corpuscular Volume 80 fL Mean Corpuscular Hemoglobin 26 pg Mean Corpuscular Hemoglobin Concent 33 g/dL Red Cell Distribution Width 13.6 % Platelet Count 211 x10^3/uL Neutrophils (%) (Auto) 40 % Lymphocytes (%) (Auto) 46 % Monocytes (%) (Auto) 13 % Eosinophils (%) (Auto) 1 % Basophils (%) (Auto) 1 % Neutrophils # (Auto) 1.5 x10^3/uL Lymphocytes # (Auto) 1.7 x10^3/uL Monocytes # (Auto) 0.5 x10^3/uL Eosinophils # (Auto) 0.0 x10^3/uL Basophils # (Auto) 0.0 x10^3/uL Sodium Level 141 mmol/L Potassium Level 3.3 mmol/L Chloride Level 102 mmol/L Carbon Dioxide Level 29 mmol/L Anion Gap 10 Blood Urea Nitrogen 11 mg/dL Creatinine 1.1 mg/dL Estimated GFR (Cockcroft-Gault) 94.5 BUN/Creatinine Ratio 10 Glucose Level 112 mg/dL Lactic Acid Level 0.9 mmol/L Calcium Level 9.0 mg/dL Total Bilirubin 0.5 mg/dL Aspartate Amino Transf (AST/SGOT) 24 U/L Alanine Aminotransferase (ALT/SGPT) 17 U/L Alkaline Phosphatase 38 U/L Creatine Kinase 741 U/L Creatine Kinase MB (Mass) 1.6 ng/mL Creatine Kinase MB Relative Index 0.2 % Troponin I High Sensitivity 5 ng/L Total Protein 7.1 g/dL Albumin 3.9 g/dL Albumin/Globulin Ratio 1.2 Urine Collection Type Unknown Urine Color Yellow Urine Clarity Clear Urine pH 8.0 Urine Specific [place] 1.010 Urine Protein Negative mg/dL Urine Glucose (UA) Negative mg/dL Urine Ketones (Stick) Trace mg/dL Urine Blood Negative Urine Nitrite Negative Urine Bilirubin Negative Urine Urobilinogen Dipstick 1.0 mg/dL Urine Leukocyte Esterase Negative Urine RBC Rare /HPF Urine WBC Occ /HPF Urine Squamous Epithelial Cells Few /LPF Urine Bacteria 0 /HPF Current Medications Medications (Trade) Dose Ordered Sig/Ayla Route PRN Reason Start Time Stop Time Status Last Admin Dose Admin Sodium Chloride 1,000 ml @ 1,000 mls/hr 1X ONCE IV 02/26/21 10:45 02/26/21 11:41 DC 02/26/21 10:52 Potassium Chloride (Klor-Con) 10 meq 1X ONCE PO 02/26/21 10:45 02/26/21 10:46 DC 02/26/21 10:51 Laboratory Tests Test 02/26/21 09:25 White Blood Count 3.8 x10^3/uL (4.0-11.0) L Red Blood Count 5.64 x10^6/uL (4.30-5.70) Hemoglobin 14.8 g/dL (13.0-17.5) Hematocrit 45.0 % (39.0-53.0) Mean Corpuscular Volume 80 fL (79-100) Mean Corpuscular Hemoglobin 26 pg (25-35) Mean Corpuscular Hemoglobin Concent 33 g/dL (31-37) Red Cell Distribution Width 13.6 % (11.5-14.5) Platelet Count 211 x10^3/uL (140-400) Neutrophils (%) (Auto) 40 % (31-73) Lymphocytes (%) (Auto) 46 % (24-48) Monocytes (%) (Auto) 13 % (0-9) H Eosinophils (%) (Auto) 1 % (0-3) Basophils (%) (Auto) 1 % (0-3) Neutrophils # (Auto) 1.5 x10^3/uL (1.8-7.7) L Lymphocytes # (Auto) 1.7 x10^3/uL (1.0-4.8) Monocytes # (Auto) 0.5 x10^3/uL (0.0-1.1) Eosinophils # (Auto) 0.0 x10^3/uL (0.0-0.7) Basophils # (Auto) 0.0 x10^3/uL (0.0-0.2) Sodium Level 141 mmol/L (136-145) Potassium Level 3.3 mmol/L (3.5-5.1) L Chloride Level 102 mmol/L (98-107) Carbon Dioxide Level 29 mmol/L (21-32) Anion Gap 10 (6-14) Blood Urea Nitrogen 11 mg/dL (8-26) Creatinine 1.1 mg/dL (0.7-1.3) Estimated GFR (Cockcroft-Gault) 94.5 BUN/Creatinine Ratio 10 (6-20) Glucose Level 112 mg/dL (70-99) H Lactic Acid Level 0.9 mmol/L (0.4-2.0) Calcium Level 9.0 mg/dL (8.5-10.1) Total Bilirubin Pending Aspartate Amino Transferase (AST) Pending Alanine Aminotransferase (ALT) Pending Alkaline Phosphatase Pending Troponin I High Sensitivity 5 ng/L (4-75) Total Protein Pending Albumin Pending Albumin/Globulin Ratio Pending Laboratory Tests 02/26/21 09:25 Laboratory Tests 02/26/21 09:25 Vital Signs: Vital Signs Date Time Temp Pulse Resp B/P (MAP) Pulse Ox O2 Delivery O2 Flow Rate FiO2 02/26/21 09:06 98.7 99 20 146/88 (107) 95 Room Air 98.7 (ADAMOVICH,KEANU BLANCHARD GRINDER OPERATOR) EKG: EKG: EKG performed at 0 938 by ED nursing staff shows a sinus tachycardia heart rate 117 bpm otherwise no ectopy, NM interval 0.134, QTc interval 0.451, no acute STEMI, no ACS, no acute ischemia appreciated, EKG interpreted by ED attending physician Dr. Haley. (KELVIN CHRISTOPHER APRN) Radiology/Procedures: Radiology/Procedures: [] (KELVIN CHRISTOPHER APRN) Course & Med Decision Making: Course & Med Decision Making Pertinent Labs and Imaging studies reviewed. (See chart for details) 30-year-old male, vital signs reviewed, presents emergency department with mother at bedside complaining the patient has not slept in 2 weeks. Patient does have history of autism with severe mental deficits, is nonverbal. Physical examination is unremarkable. Patient's mother states patient is at baseline, has had no recent fever or chills, patient makes incomprehensible sounds, does follow commands. Patient current medications include Abilify 10 mg every morning, Depakote 1000 mg nightly, Remeron 7.5 mg daily, losartan 50 mg daily, omeprazole 40 mg daily, atorvastatin 40 mg daily. A interaction review of medication concerning for risk of QT elongation, rhabdomyolysis, anticholinergic effects. Moderate concern for adverse drug interaction with anticholinergic effect h owever versus insomnia with unknown etiology, patient is not somnolent, not sleepy, pupils of normal size and PERRLA moist mucous membranes, unable to assess if vision is blurred related to patient nonverbal and history of autism, mother who is his primary caregiver denies recent urinary retention, constipation, bowel obstruction, or decreased sweating, the patient does have a tachycardia heart rate 117 bpm. Will order EKG, cardiac isoenzymes, troponin I, CBC, CMP, urinalysis assay. EKG nonconcerning for QT elongation. Labs pending at this time. Patient's serum lab work unremarkable except for potassium 3.3, patient given p.o. potassium in the ED today, patient given 1 L of saline for heart rate of 117, heart rate is now 90. The patient's urine is not infected. Discussed findings with patient's primary caregiver his mother, discussed this may be a medication interaction causing insomnia or and insomnia of unknown etiology. Recommended [id number] melatonin at night. Strict follow-up with [facility] to review patient's medications and current side effects. Patient's mother is amenable to ED discharge planning, discussed with the patient's primary caregiver his mother all findings and diagnostic testing as well as the need to follow-up with their primary care provider for further evaluation and treatment or return to the ED if any new or worsening symptoms. Strict return precautions were also discussed at length, the patient voiced understanding and agreement with the discharge planning. The patient was nontoxic in appearance, in no apparent distress, and hemodynamically stable at the time of disposition. (KELVIN CHRISTOPHER APRN) Course & Med Decision Making I have participated in the care of this patient and I have reviewed and agree with all pertinent clinical information above including history, exam, and recommendations. Uli Haley DO (ULI HALEY DO) Raphael Disclaimer: Raphael Disclaimer: This electronic medical record was generated, in whole or in part, using a voice recognition dictation system. (KELVIN CHRISTOPHER APRN) Departure Departure Impression: Primary Impression: Insomnia Qualified Codes: G47.00 - Insomnia, unspecified Disposition: HOME / SELF CARE / HOMELESS Condition: GOOD Referrals: LETI MCWILLIAMS MD (PCP) Patient Instructions: Insomnia Additional Instructions: Your son was seen today in the emergency department for insomnia. His EKG and lab work did not show any concerning findings, however as we discussed his potassium was slightly low at 3.3, he was given a potassium supplement in the emergency department today along with normal saline through his IV, his vital signs are normal at this time, as we discussed please consider a potassium supplement or consuming potassium rich foods. Your son's insomnia may be related to his long-term psychiatric medicines, as we discussed please follow-up with [facility] soon to discuss his medications and insomnia problems. You may try [id number] melatonin at night as we discussed. Follow-up with his primary care physician soon to let her know of his insomnia problems. Thank you for visiting our Emergency Department. It was a pleasure taking care of you today in the emergency department and we appreciate you trusting us with your care. If any additional problems come up don't hesitate to return to visit us. Please follow up with your primary care provider so they can plan additional care if needed and know about the problem that you had. If symptoms worsen come back to the Emergency Department. Any concerning symptoms that start such as chest pain, shortness of air, weakness or numbness on one side of the body, running high fevers or any other concerning symptoms return to the ER. EMERGENCY DEPARTMENT GENERAL DISCHARGE INSTRUCTIONS Thank you for coming to [facility] Emergency Department (ED) today and trusting us with you care. We trust that you had a positive experience in our Emergency Department. If you wish to speak to the department management, you may call the Director at [phone]. YOUR FOLLOW UP INSTRUCTIONS ARE FOLLOWS: 1. Do you have a private Doctor? If you do not have a private doctor, please ask for a resource list of physicians or clinics that may be able to assist you with follow up care. 2. The Emergency Physicain has interpreted your x-rays. The X-Ray specialist will also review them. If there is a change in the findings, you will be notified in 48 hours when at all possible. 3. A lab test or culture has been done, your results will be reviewed and you will be notified if you need a change in treatment. ADDITIONAL INSTRUCTIONS AND INFORMATION: 1. Your care today has been supervised by a physician who is specially trained in emergency care. Many problems require more than one evaluation for a complete diagnosis and treatment. We recommend that you schedule your follow up appointment as recommended to ensure complete treatment of you illness or injury. If you are unable to obtain follow up care and continue to have a problem, or if your condition worsens, we recommend that you return to the ED. 2. We are not able to safely determine your condition over the phone nor are we able to give sound medical advice over the phone. For these safety reasons, if you call for medical advice we will ask you to come to the ED for further evaluation. 3. If you have any questions regarding these discharge instructions please call the ED at [phone]. SAFETY INFORMATION: In the interest of safety, wellness, and injury prevention; we encourage you to wear your sealbelt, if you smoke; quite smoking, and we encourage family to use a protective helmet for bicycling and other sporting events that present an increased risk for head injury. IF YOUR SYMPTOMS WORSEN OR NEW SYMPTOMS DEVELOP, OR YOU HAVE CONCERNS ABOUT YOUR CONDITION; OR IF YOUR CONDITION WORSENS WHILE YOU ARE WAITING FOR YOUR FOLLOW UP APPO INTMENT; EITHER CONTACT YOUR PRIMARY CARE DOCTOR, THE PHYSICIAN WHOSE NAME AND NUMBER YOU WERE GIVEN, OR RETURN TO THE ED IMMEDIATELY. KELVIN CHRISTOPHER APRN Feb 26, 2021 10:35 ULI HALEY DO Feb 26, 2021 13:11
[2021-02-26 10:42] LABS: BILIRUBIN,URINE NEGATIVE (NEG); CLARITY,URINE CLEAR; COLOR,URINE YELLOW; NITRITE,URINE NEGATIVE (NEG); PROTEIN,URINE NEGATIVE (NEG-TRACE)
[2021-02-26] MEDS ORDERED: POTASSIUM CHLORIDE 10 MEQ TABLET.ER. PO ONE (10:45)
[2021-02-26] MEDS ORDERED: IV NORMAL SALINE 1000ML BAG 1,000 ML IV ONE (10:45)
[2021-02-26 10:56] LABS: BACTERIA,URINE 0 /HPF (0-FEW); RBC,URINE RARE /HPF (0-2); WBC,URINE OCC /HPF (0-4)
[2021-02-26 11:27] VITALS: BP 142/90
--- NOTE | 2021-02-26 23:55 | EKG ---
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
== END 2021-02-26 11:37 | disposition home or self-care (01) ==
LOC: ER 08:53
DX: G47.00 Insomnia, unspecified (principal); K21.9 Gastro-esophageal reflux disease without esophagitis; E78.00 Pure hypercholesterolemia, unspecified; I10 Essential (primary) hypertension; F84.0 Autistic disorder; Z88.2 Allergy status to sulfonamides; Z88.1 Allergy status to other antibiotic agents
CPT/HCPCS: 36415; 80053; 81001; 82553; 83605; 84484; 85025; 93005; 96360; 99284; J7030

== ENCOUNTER 2021-04-01 09:34 | Emergency (ER) | payer OTHER ==
[~2021-04-01] VITALS: Ht 175.3 cm; Wt 81.0 kg
[2021-04-01] MEDS ORDERED: ZOLP10TA PO (10:34)
[2021-04-01] MEDS ORDERED: ATOR20TA58 PO (10:34)
[2021-04-01] MEDS ORDERED: ARIP10TA9 PO (10:34)
[2021-04-01] MEDS ORDERED: OMEP40CA7 PO (10:34)
[2021-04-01 10:59] LABS: CALCIUM 8.9 mg/dL (8.5-10.1); GFR 105.5; POTASSIUM 3.3 mmol/L (3.5-5.1)
[2021-04-01 11:04] LABS: ALBUMIN 3.9 g/dL (3.4-5.0); ALBUMIN/GLOBULIN RATIO 1.3 (1.0-1.7); TOTAL BILIRUBIN 0.6 mg/dL (0.2-1.0); TOTAL PROTEIN 6.9 g/dL (6.4-8.2)
[2021-04-01 11:05] LABS: BASO % 0 % (0-3); EOS % 0 % (0-3); HEMATOCRIT 45.1 % (39.0-53.0); HEMOGLOBIN 14.7 g/dL (13.0-17.5); LYMPH # 1.2 x10^3/uL (1.0-4.8); LYMPH % 41 % (24-48); MEAN CORPUSCULAR HEMOGLOBIN 26 pg (25-35); MEAN CORPUSCULAR HGB CONC 33 g/dL (31-37); MEAN CORPUSCULAR VOLUME 81 fL (79-100); MONO # 0.4 x10^3/uL (0.0-1.1); MONO % 12 % (0-9); NEUT # 1.3 x10^3/uL (1.8-7.7); NEUT % 46 % (31-73); PLATELET COUNT 226 x10^3/uL (140-400); RED BLOOD COUNT 5.58 x10^6/uL (4.30-5.70); RED CELL DISTRIBUTION WIDTH 13.9 % (11.5-14.5); WHITE BLOOD COUNT 2.9 x10^3/uL (4.0-11.0)
[2021-04-01 12:31] LABS: BILIRUBIN,URINE NEGATIVE (NEG); CLARITY,URINE CLEAR; COLOR,URINE YELLOW; NITRITE,URINE NEGATIVE (NEG); PH,URINE 7.5 (<5.0-8.0); PROTEIN,URINE NEGATIVE (NEG-TRACE)
[2021-04-01 12:43] LABS: BACTERIA,URINE 0 /HPF (0-FEW); RBC,URINE 0 /HPF (0-2); WBC,URINE RARE /HPF (0-4)
--- NOTE | 2021-04-01 15:24 | PHYS DOC ---
Past Medical History Past Medical History: GERD, High Cholesterol, Hypertension Additional Past Medical Histor: AUTISM Past Surgical History: Other Additional Past Surgical Histo: HEMORRHOID BAND; toe amputation; sebacious cyst Smoking Status: Never Smoker Alcohol Use: None Drug Use: None General Adult EDM: Chief Complaint: PSYCH EVALUATION HPI: HPI: Patient is a 30 year old male who presents with his mother for psychiatric evaluation and medical screen exam. Mom reports that the patient is nonverbal with autism. Today, she found him in bed with a sheet wrapped around his neck. Mom reports the patient has been scratching himself across his chest and also on his penis. Additionally, he has slept for no more than a period of 4-5 hours for over a week. Mom states she has given him his daily medications as they are prescribed, including Ativan and Ambien, but he still seems worked up and does not sleep. She called chris Emery this morning, who informed her she needed to present to any emergency department for medical screening exam before he could be admitted. She has no medical complaints for the patient at this time. Review of Systems: Review of Systems: Patient is nonverbal secondary to autism, review of systems obtained from mother as mentioned in HPI. Heart Score: C/O Chest Pain: No Current Medications: Current Medications Medications (Trade) Dose Ordered Sig/Ayla Start Time Stop Time Status Last Admin Dose Admin Lorazepam (Ativan Inj) 2 mg PRN Q4HRS PRN 04/01/21 10:15 04/01/21 10:41 2 MG Allergies: Allergies: Allergies Coded Allergies Type Severity Reaction Last Updated Verified sulfamethoxazole Allergy Intermediate 03/07/18 Yes trimethoprim Allergy Intermediate 03/07/18 Yes vancomycin Adverse Reaction Intermediate Itching. Taya's syndrome 03/07/18 No Physical Exam: PE: Constitutional: Well developed, well nourished, non-toxic appearance, patient appears anxious/agitated. HENT: Normocephalic, atraumatic, bilateral external ears normal, oropharynx moist, no oral exudates, nose without obvious deformity or discharge. Eyes: PERRLA, EOMI, conjunctiva normal, no discharge. Neck: Normal range of motion, no tenderness, supple, no stridor. Cardiovascular: Heart rate regular rhythm, no murmur. Lungs & Thorax: Bilateral breath sounds clear to auscultation. Abdomen: Bowel sounds normal, soft, no tenderness, no masses, no pulsatile masses. Genital: Patient wears an adult brief daily. Mons pubis with symmetrical and appropriate hair growth pattern, no lesions or other rash appreciated, white cream noted across groin (mom applies to avoid dermatitis). Penis is circumcised and has an abrasion noted to the ventral aspect of the penile shaft just proximal to the glans penis without discharge or active bleeding. No rashes noted to penis or scrotum. No tenderness appreciated. No urethral discharge. Skin: Warm, dry, no erythema, no rash. Back: No tenderness, no CVA tenderness. Extremities: No tenderness, no cyanosis, no clubbing, ROM intact, no edema. Current Patient Data: Labs: Laboratory Tests Test 04/01/21 10:30 04/01/21 10:49 04/01/21 10:58 04/01/21 12:06 Sodium Level 140 mmol/L (136-145) Potassium Level 3.3 mmol/L (3.5-5.1) L Chloride Level 101 mmol/L (98-107) Carbon Dioxide Level 33 mmol/L (21-32) H Anion Gap 6 (6-14) Blood Urea Nitrogen 10 mg/dL (8-26) Creatinine 1.0 mg/dL (0.7-1.3) Estimated GFR (Cockcroft-Gault) 105.5 BUN/Creatinine Ratio 10 (6-20) Glucose Level 76 mg/dL (70-99) Calcium Level 8.9 mg/dL (8.5-10.1) Total Bilirubin 0.6 mg/dL (0.2-1.0) Aspartate Amino Transferase (AST) 22 U/L (15-37) Alanine Aminotransferase (ALT) 25 U/L (16-63) Alkaline Phosphatase 39 U/L (46-116) L Total Protein 6.9 g/dL (6.4-8.2) Albumin 3.9 g/dL (3.4-5.0) Albumin/Globulin Ratio 1.3 (1.0-1.7) SARS-CoV-2 RNA (JORGE) Negative (Negative) SARS-CoV-2 Antigen (Rapid) Negative (NEGATIVE) White Blood Count 2.9 x10^3/uL (4.0-11.0) L Red Blood Count 5.58 x10^6/uL (4.30-5.70) Hemoglobin 14.7 g/dL (13.0-17.5) Hematocrit 45.1 % (39.0-53.0) Mean Corpuscular Volume 81 fL (79-100) Mean Corpuscular Hemoglobin 26 pg (25-35) Mean Corpuscular Hemoglobin Concent 33 g/dL (31-37) Red Cell Distribution Width 13.9 % (11.5-14.5) Platelet Count 226 x10^3/uL (140-400) Neutrophils (%) (Auto) 46 % (31-73) Lymphocytes (%) (Auto) 41 % (24-48) Monocytes (%) (Auto) 12 % (0-9) H Eosinophils (%) (Auto) 0 % (0-3) Basophils (%) (Auto) 0 % (0-3) Neutrophils # (Auto) 1.3 x10^3/uL (1.8-7.7) L Lymphocytes # (Auto) 1.2 x10^3/uL (1.0-4.8) Monocytes # (Auto) 0.4 x10^3/uL (0.0-1.1) Eosinophils # (Auto) 0.0 x10^3/uL (0.0-0.7) Basophils # (Auto) 0.0 x10^3/uL (0.0-0.2) Urine Collection Type Unknown Urine Color Yellow Urine Clarity Clear Urine pH 7.5 (<5.0-8.0) Urine Specific [place] <=1.005 (1.000-1.030) Urine Protein Negative mg/dL (NEG-TRACE) Urine Glucose (UA) Negative mg/dL (NEG) Urine Ketones (Stick) Negative mg/dL (NEG) Urine Blood Negative (NEG) Urine Nitrite Negative (NEG) Urine Bilirubin Negative (NEG) Urine Urobilinogen Dipstick 1.0 mg/dL (0.2 mg/dL) Urine Leukocyte Esterase Negative (NEG) Urine RBC 0 /HPF (0-2) Urine WBC Rare /HPF (0-4) Urine Squamous Epithelial Cells Occ /LPF Urine Bacteria 0 /HPF (0-FEW) Laboratory Tests 04/01/21 10:58 Laboratory Tests 04/01/21 10:30 Vital Signs: Vital Signs Date Time Temp Pulse Resp B/P (MAP) Pulse Ox O2 Delivery O2 Flow Rate FiO2 04/01/21 20:06 100 19 152/91 (111) 94 Room Air 04/01/21 19:04 94 18 138/85 (102) 99 Room Air 04/01/21 18:03 93 18 138/85 (102) 99 Nasal Cannula 1.0 04/01/21 17:03 82 16 119/60 (79) 99 Room Air 04/01/21 16:03 72 16 107/62 (77) 96 Room Air 04/01/21 15:03 97 16 140/70 (93) 99 Room Air 04/01/21 14:03 90 16 152/82 (105) 97 Room Air 04/01/21 13:03 80 16 113/73 (86) 98 Room Air 04/01/21 12:03 92 17 121/70 (87) 98 Room Air 04/01/21 11:00 97 18 99 Room Air 04/01/21 09:53 99.5 97 18 128/78 (95) 98 Room Air 99.5 Course & Med Decision Making: Course & Med Decision Making Pertinent Labs and Imaging studies reviewed. (See chart for details) Patient presents with his mother for a medical screening exam prior to admission to psychiatric facility. Mom has been in contact with Chris Emery, who advised that she present to an emergency department for medical clearance. She has no medical complaints. Necessary lab work will be drawn for psychiatric admission. PAT was paged after we had obtained all necessary labs. Sylvie advised that for [facility] admission, Covid PCR swab results were needed. Patient's PCR Covid swab negative. PAT paged again. Chris Emery declined patient admission. At this point, Sylvie will contact other facilities and attempt to find placement elsewhere. Sylvie called back and informed me that there are no facilities in the area that have the capability of caring for the patient. New care plan includes a safety plan and providing patient's mom with additional resources to seek alternative treatment, which include possibly a residential facility or transferring outpatient care to [facility]. Safety plan in place. Mom understands and is agreeable to discharge plan. Raphael Disclaimer: Raphael Disclaimer: This electronic medical record was generated, in whole or in part, using a voice recognition dictation system. Departure Departure Impression: Primary Impression: Encounter for medical screening examination Additional Impressions: Suicide gesture Qualified Codes: X83.8XXA - Intentional self-harm by other specified means, initial encounter Self-harming behavior Autism spectrum disorder, requiring very substantial support, with accompanying language impairment, with accompanying intellectual disability Disposition: 01 HOME / SELF CARE / HOMELESS Condition: STABLE Referrals: LETI MCWILLIAMS MD (PCP) Patient Instructions: Suicide, Helping Someone Who is Suicidal Additional Instructions: As discussed, there are no facilities in the area that have the capability of providing the level of care that Neil needs. You and Sylvie, from the psychiatric assessment team, have made a safety plan. You were also provided with several resources to possibly obtain residential care for Neil or to transfer his outpatient care to a new clinic that may be better able to meet your needs and that of your family. ELIZABETH KAPLAN Apr 01, 2021 15:24
[2021-04-01] MEDS ORDERED: DIVALPROEX DELAYED RELEASE 500 MG TABLET.DR. PO SCH (19:00)
[2021-04-01] MEDS ORDERED: ATORVASTATIN CALCIUM 20 MG TABLET PO SCH (19:00)
[2021-04-01 20:06] VITALS: BP 152/91
[2021-04-01] MEDS: ZOLPIDEM 5 MG TABLET. PO PRN ×2 (20:17→20:24)
[2021-04-01] MEDS ORDERED: DIVALPROEX DELAYED RELEASE 500 MG TABLET.DR. PO ONE (20:30)
--- NOTE | 2021-04-02 04:18 | EKG ---
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
== END 2021-04-01 20:51 | disposition home or self-care (01) ==
LOC: ER 09:34
DX: R45.851 Suicidal ideations (principal); Z20.822 Contact with and (suspected) exposure to COVID-19; F84.0 Autistic disorder; K21.9 Gastro-esophageal reflux disease without esophagitis; E78.00 Pure hypercholesterolemia, unspecified; I10 Essential (primary) hypertension; Z88.1 Allergy status to other antibiotic agents; Z88.2 Allergy status to sulfonamides
CPT/HCPCS: 36415; 80053; 81001; 85025; 87426; 93005; 96374; 96376; 99285; J2060; U0003; U0005

== ENCOUNTER → 2021-04-18 | Outpatient (CLI) | payer OTHER ==
[2021-04-01 20:06] VITALS: BP 152/91
[~2021-04-18] MED LIST changes: +ARIP10TA9 PO; +ATOR20TA58 PO; +IOHEXOL 240 MG/ML 50ML VIAL. PO ONE; +IOHEXOL 300 MG/ML 100ML VIAL. IV ONE; +OMEP40CA7 PO; +ZOLP10TA PO
--- NOTE | 2021-04-18 10:23 | KCIC ---
INDICATION: Reason: GENERALIZED ABDOMINAL PAIN, WT. LOSS / Spl. Instructions: 100mL Omni 300, pt. non verbal, unable to hold breath. / History: COMPARISON: July 2018 TECHNIQUE: Axial CT images were obtained through the abdomen and pelvis with intravenous contrast. One or more of the following individualized dose reduction techniques were utilized for this examinat ion: 1. Automated exposure control; 2. Adjustment of the mA and/or kV according to patient size; 3 . Use of iterative reconstruction technique. FINDINGS: There is some mild interstitial nodular opacities at lung bases. Vascular: No abdominal aortic aneurysm. Hepatobiliary: Liver appears mildly low density. Nonspecific but can be seen with fatty infiltration. Pancreas: No peripancreatic fluid collection. Spleen: Spleen unremarkable. Renal/Bladder: Urinary bladder is decompressed. No significant hydronephrosis. Gastrointestinal: Prominent stool within portions of the colon. No periappendiceal inflammatory stevens es. Diffuse mild prominence of bowel loops. There is some mild degenerative changes the spine. IMPRESSION: * There is diffuse mild prominence of the bowel loops. Causes such as mild ileus not excluded. Ther e is also some prominent stool and air seen within the colon including prominent stool in the rectal region. * No significant hydronephrosis. * There is some mild interstitial nodular opacities at the lung bases which could be infectious or i nflammatory in nature. Electronically signed by: Bladimir Carney MD (04/18/2021 10:20 AM) [id number]
== END ==
LOC: KCIC CT 08:51
PROVIDERS: ATTEND Family Medicine
DX: K56.41 Fecal impaction (principal); R91.8 Other nonspecific abnormal finding of lung field; M47.819 Spondylosis without myelopathy or radiculopathy, site unspecified; R63.4 Abnormal weight loss
CPT/HCPCS: 74177; Q9966; Q9967

== ENCOUNTER → 2021-04-19 | Outpatient (CLI) | payer OTHER ==
[2021-04-01 20:06] VITALS: BP 152/91
[~2021-04-19] MED LIST changes: -IOHEXOL 240 MG/ML 50ML VIAL. PO ONE; -IOHEXOL 300 MG/ML 100ML VIAL. IV ONE
--- NOTE | 2021-04-20 12:08 | SLEEP ---
DATE OF STUDY: 04/19/2021 SLEEP STUDY ATTENDING PHYSICIAN: Zehra Fish MD. The patient is a 30-year-old who weighs 185 pounds with a BMI of 27.3. The patient underwent diagnostic sleep study performed at [facility]. The patient's [place] score was only 1. During the night study, the patient spent 490 minutes in bed and slept for 287 minutes with a low sleep efficiency of 59%. Sleep latency was 13 minutes with a REM latency of 65 minutes. Sleep architecture showed normal stage 1 sleep, increased stage 2 sleep, reduced slow-wave sleep, and reduced REM sleep. During the night study, the patient had 4 obstructive apneas, 3 mixed apneas, 8 central apneas, no hypopneas. The patient's AHI was 3 per hour with a supine AHI of 3 per hour and a REM AHI of 11 per hour. No significant PLMS seen. EKG monitoring revealed an average heart rate of 69 beats per minute, no sustained arrhythmias observed. Nocturnal oximetry study revealed an average oxygen saturation of 94% with the lowest of 80%. No sustained nocturnal hypoxia observed less than 90%. Due to low AHI, the patient did not meet the split night criteria for CPAP initiation. IMPRESSION: 1. No clinically significant sleep disorder breathing. The patient's AHI for the entire night was 3 per hour. 2. No significant nocturnal hypoxia. 3. No significant periodic limb movements. 4. Reduced sleep efficiency, resulting from sleep maintenance insomnia. RECOMMENDATIONS: 1. The patient did not meet the split night criteria for CPAP initiation due to low AHI. 2. Avoid [employer] depressants. 3. Cautioned regarding driving when sleepy or sleep deprived. 4. Weight loss to the ideal body weight is recommended. 5. If the patient's insomnia is chronic, then it should be further evaluated and treated according to the etiology. The patient's sleep efficiency was low on the night of the study. JOSE/MOSES DR: Zion TID: [id number] CC: ZEHRA FISH MD
== END ==
LOC: SLPLAB 18:58
PROVIDERS: ATTEND Family Medicine
DX: G47.09 Other insomnia (principal); G47.30 Sleep apnea, unspecified
CPT/HCPCS: 95810

== ENCOUNTER → 2021-05-13 | Day surgery (SDC) | payer OTHER ==
[~2021-05-13] VITALS: Ht 175.3 cm; Wt 78.0 kg
[~2021-05-13] MED LIST changes: +ACET500T68 PO; +CETI10TA16 PO; +IV RINGERS,LACTATED 1000ML 1,000 ML IV SCH; +PROPOFOL 10 MG/ML (20ML) VIAL. IV ONE; +QUET100T4 PO
[2021-05-13 06:15] VITALS: BP 122/84
[2021-05-13 07:35] VITALS: BP 114/63
--- NOTE | 2021-05-17 09:12 | PATHOLOGY ---
[facility] Accession Number: [id number] . 01 Material submitted: . duodenum - DUODENAL BIOPSY R/O CELIAC . 01 Clinical history: . ABDOMINAL PAIN EGD . 02 Diagnosis: Duodenal biopsy: - No diagnostic abnormalities. LBQ 05/16/2021 1217 Local . 02 Comment: Sections of the duodenal biopsy reveal multiple segments of duodenal and small intestine mucosa. Where best oriented, the mucosal villi show no sprue-like changes or significant inflammatory changes. (JPM/db; 05/16/2021) . 02 Electronically signed: . Shaun Zambrano MD, Pathologist NPI- [id number] . 01 Gross description: . The specimen is received in formalin, labeled "Stef Rivers, duodenal BX, rule out celiac". Received are multiple fragments of pale andrew tissue ranging in size from 0.3-0.5 cm in maximum dimension. The specimen is entirely submitted in cassette A1. ([facility]; 05/13/2021) NRI/NRI 05/13/2021 1729 Local . 02 Pathologist provided ICD-10: R10.9 . 02 CPT . 755883 Specimen Comment: A courtesy copy of this report has been sent to [phone] Specimen Comment: [id number] Specimen Comment: Report sent to / DR MCWILLIAMS Specimen Comment: A duplicate report has been generated due to demographic updates. Performed at: 01 [facility] [address] [id number] MD Van Junior MD Phone: [phone] Performed at: 02 [facility] [address] [place], [place] [id number] MD Shaun Zambrano MD Phone: [phone]
== END | disposition home or self-care (01) ==
LOC: SURG 06:04
PROVIDERS: ATTEND Internal Medicine Gastroenterology
DX: R63.4 Abnormal weight loss (principal); K63.89 Other specified diseases of intestine; R10.9 Unspecified abdominal pain; I10 Essential (primary) hypertension; F41.9 Anxiety disorder, unspecified; Z79.899 Other long term (current) drug therapy; Z98.890 Other specified postprocedural states; Z88.1 Allergy status to other antibiotic agents; Z88.8 Allergy status to other drugs, medicaments and biological substances
CPT/HCPCS: 43239; 88305; J2704

== ENCOUNTER 2021-05-19 10:53 | Day surgery (SDC) | payer OTHER ==
[~2021-05-19] VITALS: Ht 167.6 cm; Wt 76.5 kg
[~2021-05-19 10:53] MED LIST changes: -ACET500T68 PO; +BACITRACIN TOPICAL OINT PACKET. TP ONE; +HYDROmorphone 2 MG/ML INJ. IVP PRN; +LIDOCAINE 1%/EPI 1:100,000 20 ML VIAL. ONE; +MORPHINE SULFATE 2 MG/ML INJ. IVP PRN; +PROCHLORPERAZINE 10 MG/2 ML VIAL. IVP PRN; -PROPOFOL 10 MG/ML (20ML) VIAL. IV ONE; +fentaNYL PF VIAL 100 MCG/2 ML VIAL IVP PRN
[2021-05-19] MEDS ORDERED: fentaNYL PF VIAL 100 MCG/2 ML VIAL ONE (11:54)
[2021-05-19] MEDS ORDERED: ONDANSETRON PF 4 MG/2 ML VIAL. ONE (11:54)
[2021-05-19] MEDS ORDERED: PROPOFOL 10 MG/ML (20ML) VIAL. IV ONE (11:54)
[2021-05-19] MEDS ORDERED: LIDOCAINE 2% PF 5 ML VIAL. ONE (11:54)
[2021-05-19] MEDS ORDERED: SUCCINYLCHOLINE 200 MG/10 ML VIAL. ONE (11:54)
[2021-05-19] MEDS ORDERED: DEXAMETHASONE SOD PHOS 4 MG/ML VIAL ONE (11:54)
[2021-05-19] MEDS ORDERED: MIDAZOLAM HCL/PF 2 MG/2 ML VIAL. ONE (11:55)
--- NOTE | 2021-05-19 11:59 | EKG ---
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
[2021-05-19] MEDS ORDERED: ePHEDrine PF IN SALINE 50 MG/10 ML SYRINGE. IV ONE (12:54)
[2021-05-19] MEDS ORDERED: ACET500T68 PO (13:39)
[2021-05-19] MEDS ORDERED: IBUP-1007 PO (13:39)
[2021-05-19 13:55] VITALS: BP 96/34
--- NOTE | 2021-05-19 14:01 | PDOC4 ---
OPERATIVE NOTE Date: Date: May 19, 2021 Pre-Op Diagnosis: Scalp mass Post-Op Diagnosis: Bony exostosis of the scalp Procedure Performed: Exam under anesthesia, exploration of scalp mass Incision 12:53 PM1:03 PM Surgeon: Brisa Ortiz MD Anesthesia Type: General LMA Blood Loss: 5 cc Specimans Obtained: Subcutaneous mass Findings: See operative note Complications: None Operative Note: Informed consent was obtained in the perioperative holding area with the patient's mother. The risks of bleeding, infection, wound healing issues, recurrence, need for additional procedures, need for revision procedures were discussed with the patient's mother. She understood and desired to proceed. The patient was brought to the operating room and general anesthesia was induced. The patient's scalp was cleansed with chlorhexidine and an examination was performed. Multiple rugal folds were at the vertex of the patient's scalp. A tense nonmobile mass was felt at the surface, through the subcutaneous tissues. A transverse incision was made at the vertex of the scalp measuring approximately 3 cm. The deep dermis and subcutaneous tissue were spread with hemostats. Cautery was used to obtain hemostasis. The surrounding subcutaneous tissue, above the galea was explored and a small subcutaneous mass was sent to pathology yet this was away from the previous area of concern. Radial releasing incisions were made in the subcutaneous tissue in the areas of concern and around it and no definitive cyst was found. There was a 1.5 cm diameter bony exostosis at approximately 8:00, 2 cm from the vertex. The galea was released and this area to confirm the bony nature of the mass. Hemostasis was again assured with cautery. 4-0 Vicryl was used to approximate the subcutaneous t issue and deep dermis. 4-0 Prolene suture was used to close the skin using interrupted horizontal mattress sutures. Antibiotic ointment was applied. The patient tolerated the procedure well. BRISA ORTIZ MD May 19, 2021 14:01
--- NOTE | 2021-05-23 17:06 | PATHOLOGY ---
[facility] Accession Number: [id number] . 01 Material submitted: . scalp - SCALP MASS . 01 Clinical history: . EXCISION OF CYST ON SCALP . 02 Diagnosis: Fibroadipose tissue, scalp mass: - Dense fibrosis and coagulative changes. . (JPM:mml; 05/23/2021) [facility] 05/23/2021 1347 Local . 02 Comment: Sections of the scalp mass reveal a segment of fibroadipose tissue showing dense fibrosis and coagulative changes. There is no cyst identified. There is no evidence of malignancy. . (JPM:mml; 05/23/2021) . 02 Electronically signed: . Shaun Zambrano MD, Pathologist NPI- [id number] . 01 Gross description: . The specimen is received in formalin, labeled "Stef Rivers, scalp mass" and consists of a andrew-brown rubbery irregular fibrous tissue (0.9 x 0.8 x 0.3 cm). The specimen is inked black, serially section and submitted entirely in A1.([facility]; 05/20/2021) DKA/DKA 05/20/2021 1037 Local . 02 Pathologist provided ICD-10: L90.5 . 02 CPT . 831608 Specimen Comment: A courtesy copy of this report has been sent to [phone] Specimen Comment: Report sent to Specimen Comment: A duplicate report has been generated due to demographic updates. Performed at: 01 [facility] [address] [facility] [address], [place] [id number] MD Van Junior MD Phone: [phone] Performed at: 02 [facility] [address] [place], [place] [id number] MD Shaun Zambrano MD Phone: [phone]
== END 2021-05-19 14:25 | disposition home or self-care (01) ==
LOC: SURG 10:53
PROVIDERS: ATTEND Plastic Surgery
DX: R22.0 Localized swelling, mass and lump, head (principal); L90.5 Scar conditions and fibrosis of skin; L72.11 Pilar cyst; I10 Essential (primary) hypertension; E78.00 Pure hypercholesterolemia, unspecified; F41.9 Anxiety disorder, unspecified; Z79.899 Other long term (current) drug therapy; Z98.890 Other specified postprocedural states; Z88.2 Allergy status to sulfonamides; Z88.8 Allergy status to other drugs, medicaments and biological substances
CPT/HCPCS: 11421; 88305; 93005; A4930; J0690; J1100; J2250; J2405; J2704; J3010; J3490; J0330